=== PATIENT | female | born 1960 | race Caucasian/White ===

== ENCOUNTER 2019-05-02 20:03 | Inpatient (IN) ==
[2019-05-02] MEDS ORDERED: ALBUT/IPRATROP 3MG/0.5MG NEB 3 ML VIAL NEB STA ×2 (21:03→23:14)
[2019-05-02] MEDS ORDERED: SODIUM CHLORIDE 0.9% 1000ML 1,000 ML IV ONE (21:03)
[2019-05-02] MEDS ORDERED: MoRPHine SULFATE 4 MG/ML 1 ML CARP\\VIAL IV STA (21:06)
[2019-05-02] MEDS ORDERED: CEFEPIME 2,000 MG/20 ML VIAL IV STA (21:07)
--- NOTE | 2019-05-02 21:30 | XRay Report ---
XR chest 1V portable HISTORY: 59 years-old Female SEPSIS acute fever with sepsis COMPARISON: Chest radiograph 02/19/2019 TECHNIQUE: Portable AP view of the chest FINDINGS: Cardiac silhouette is mildly enlarged, unchanged. Stable positioning of right IJ [id number]-Insc cathet er. Unchanged moderate hemidiaphragmatic elevation. Interstitial coarsening, most pronounced in the l blu bases with left greater than right linear bibasilar densities. No pneumothorax, large pleural eff usion or overt pulmonary edema. Degenerative changes of the shoulders and spine. IMPRESSION: 1. Cardiomegaly without overt pulmonary edema. 2. Bibasilar opacities suggest probable atelectasis/scarring. Pneumonitis however would be difficult to exclude. ACT 112: Negative or not required by law. The above report was generated using voice recognition software. It may contain grammatical, syntax o r spelling errors. Electronically signed by: James Lozano M.D. 05/02/2019 9:28 PM
[2019-05-02 21:52] LABS: Appearance Urine Cloudy (Clear); Bacteria Urine Automated Negative (Negative); Bilirubin Urine Negative (Negative); Blood Urine Negative (Negative); Color Urine Yellow; Epithelial Cell Urine Auto 20-30 /lpf (0-5); Glucose Urine UA Negative (Negative); Ketones Urine Negative (Negative); Leukocyte Esterase Urine Negative (Negative); Nitrite Urine Negative (Negative); Protein Urine Negative (Negative); RBC Urine Automated 0-4 /hpf (0-4); Specific Gravity Urine 1.018 (1.000-1.030); Urobilinogen Urine Negative (Negative); pH Urine 7.5 (4.5-7.5)
[2019-05-02 22:21] LABS: Basophils # (auto) 0.04 K/uL (0-0.2); Basophils % (auto) 0.3 %; Eosinophils # (auto) 0.29 K/uL (0-0.5); Eosinophils % (auto) 2.2 %; Hematocrit (blood only) 33.6 % (37-47); Hemoglobin 10.5 g/dL (12.0-16.0); Immature Granulocytes # (auto) 0.04 K/uL (0.00-0.02); Immature Granulocytes % (auto) 0.3 %; Lymphocytes % (auto) 3.8 %; Mean Corpuscular Hemoglobin 27.9 pg (25-34); Mean Corpuscular Hgb Conc 31.3 g/dL (32-36); Mean Corpuscular Volume 89.1 fL (80-100); Mean Platelet Volume 9.5 fL (7.4-10.4); Monocytes # (auto) 1.28 K/uL (0.11-0.59); Monocytes % (auto) 9.8 %; Neutrophils # (auto) 10.87 K/uL (1.4-6.5); Neutrophils % (auto) 83.6 %; Platelet Count 374 K/uL (130-400); RDW Coefficient of Variation 14.7 % (11.5-14.5); RDW Standard Deviation 48.3 fL (36.4-46.3); Red Blood Count 3.77 M/uL (4.2-5.4); White Blood Count 13.02 K/uL (4.8-10.8)
[2019-05-02 22:31] LABS: Partial Thromboplastin Ratio 1.1; Partial Thromboplastin Time 30.6 Seconds (21.0-31.0); Prothrombin Time 10.3 Seconds (9.0-12.0)
[2019-05-02 22:35] LABS: Influenza A virus by PCR Neg for Influ A (Neg); Influenza B virus by PCR Neg for Influ B (Neg)
[2019-05-02 22:40] LABS: Alanine Aminotransferase 18 U/L (12-78); Albumin Level 2.6 gm/dl (3.4-5.0); Aspartate Aminotransferase 13 U/L (15-37); BUN Creatinine Ratio 15.1 (10-20); Blood Urea Nitrogen 13 mg/dl (7-18); Calcium 9.3 mg/dl (8.5-10.1); Carbon Dioxide 27 mmol/L (21-32); Chloride 102 mmol/L (98-107); Creatinine Clr Calc Pharmacy 83.8 ml/min; Est GFR (African American) 85.7; Glucose 145 mg/dl (70-99); Potassium 3.4 mmol/L (3.5-5.1); Sodium 136 mmol/L (136-145)
[2019-05-02 22:45] LABS: Albumin Globulin Ratio 0.6 (0.9-2); Alkaline Phosphatase 84 U/L (45-117); Bilirubin,Total 0.3 mg/dl (0.2-1); Globulin 4.2 gm/dl (2.5-4.0); Total Protein 6.8 gm/dl (6.4-8.2); Troponin I < 0.015 ng/ml (0-0.045)
[2019-05-02] MEDS ORDERED: POTASSIUM CHLORIDE 20 MEQ TABCR PO STA (23:02)
[2019-05-02] MEDS ORDERED: DOXYCYCLINE HYCLATE 100 MG in DEXTROSE 5% 100 ML IV STA (23:04)
[2019-05-02] MEDS ORDERED: SODIUM CHLORIDE 0.9% 1000ML 500 ML IV ONE (23:14)
[2019-05-02] MEDS ORDERED: LACTATED RINGER'S 1,000 ML IV ONE (23:14)
--- NOTE | 2019-05-02 23:43 | History & Physical Report ---
Date of Service May 02, 2019 Assessment & Plan (1) Severe sepsis: SIRS plus lactic acid elevation Secondary to complicated bronchitis COPD exacerbation secondary to above CAD status post stent hypertension, BP on the lower side hyperlipidemia on statin Rx past tobacco abuse rheumatoid arthritis, stable as per patient hypothyroidism, euthyroid as of today's TSH Hyperglycemia rule out DM Hypokalemia secondary to diuretic Rx chronic anemia, hemoglobin slightly lower than baseline Medical telemetry Cultures, Doxycycline IVF, follow lactic acid prednisone course Anemia work-up Basal insulin, ISS BG goal [id number] -given anticipated hyperglycemia following steroid Rx; check hemoglobin A1c Replace potassium, hold home diuretic until patient euvolemic DVT prophylaxis per Lovenox subcu Full code History of Present Illness Primary Care Provider: VIDAL Sanchez [place], [place] History obtained from patient and records. Medical history significant for CAD status post stent, hypertension, hyperlipidemia, COPD as per records, past tobacco abuse, rheumatoid arthritis, hypothyroidism, chronic anemia (baseline hemoglobin of 11). Recent confinement May 2013 under General Surgery service for perforated gastric ulcer status post surgery. Patient moved to [place] from [place] late 2013. Currently in town for the holidays to visit family. Few days history of malaise symptoms, dry cough later productive of greenish sputum associated with chills, body aches, and fever at home. Possible sick contact at home. Worsening shortness of breath without chest pain. Denies aspiration. At the ER, patient received Cefepime for sepsis. Medical History as above Surgical History : Cholecystectomy, cervical conization, ganglion/neuroma removal right foot, tonsillectomy/adenoidectomy, BTL, ex lap and closure of perforated gastric ulcer, appendectomy, a port placement Family History : Lung cancer, colon cancer, heart disease Personal/Social history : Past tobacco abuse, occasional EtOH intake, disabled Allergies Allergy/AdvReac Type Severity Reaction Status Date / Time codeine Allergy Intermediate CODEINE=NAUSEA Verified 05/02/19 23:33 VICODIN = HIVES/ITCHING, PERCOCET = VOMITING Iodinated Contrast Media Allergy Intermediate HIVES Verified 05/02/19 23:33 hydroxychloroquine Allergy Unknown Unknown Verified 05/02/19 23:33 metronidazole Allergy Unknown Hives Verified 05/02/19 23:33 hydromorphone AdvReac NAUSEA Verified 05/02/19 23:33 Home Medications Home Medications Medication Instructions Recorded Confirmed Type albuterol sulfate [ProAir HFA] 1 - 2 puff INHALATION Q4H PRN 02/19/19 05/02/19 History aspirin 81 mg PO HS 02/19/19 05/02/19 History atorvastatin 10 mg PO QPM 02/19/19 05/02/19 History clobetasol 1 applic TOPICAL BID 02/19/19 05/02/19 History cyclobenzaprine 10 mg PO TID PRN 02/19/19 05/02/19 History fluoxetine 40 mg PO DAILY 02/19/19 05/02/19 History fluticasone propion-salmeterol 1 puff INHALATION BID 02/19/19 05/02/19 History fluticasone propionate [Flonase 1 spray INTRANASAL BID 02/19/19 05/02/19 History Allergy Relief] furosemide 40 mg PO DAILY 02/19/19 05/02/19 History gabapentin 100 mg PO DAILY 02/19/19 05/02/19 History gabapentin 300 mg PO QPM 02/19/19 05/02/19 History isosorbide mononitrate 30 mg PO QAM 02/19/19 05/02/19 History ketoconazole 1 applic TOPICAL HS 02/19/19 05/02/19 History levothyroxine 100 mcg PO DAILY 02/19/19 05/02/19 History melatonin 10 mg PO HS PRN 02/19/19 05/02/19 History metoprolol succinate 50 mg PO DAILY 02/19/19 05/02/19 History montelukast 10 mg PO DAILY 02/19/19 05/02/19 History mupirocin 1 applic TOPICAL QAM 02/19/19 05/02/19 History nitroglycerin [Nitrostat] 0.4 mg SUBLINGUAL DIRECTED PRN 02/19/19 05/02/19 History [id number]-fish oil [Lutz-3 1 cap PO DAILY 02/19/19 05/02/19 History Fish Oil] pantoprazole 40 mg PO BID 02/19/19 05/02/19 History polyethylene glycol 3350 17 g PO DAILY PRN 02/19/19 05/02/19 History promethazine 12.5 mg PO TID PRN 02/19/19 05/03/19 History spironolactone 25 mg PO DAILY 10/20/19 01/01/20 History triamcinolone acetonide 1 applic TOPICAL BID 02/19/19 05/03/19 History Past Med/Surg History Surgical History H/O heart artery stent Social History Preferred Language: Cypriot Beliefs That Will Affect Care: None Current Living Situation: Family Feels Safe at Home: Yes Safety Concerns: Feels Safe At This Time Smoking Status: Former smoker Do You Dip or Chew Tobacco: No ; Second Hand Exposure: Yes ; Hx Alcohol Use: No Hx Substance Use: No Review of Systems Review of Systems: As per HPI, all 10 systems reviewed, all other ROS negative Physical Exam Physical Exam: GENERAL: Obese, minimal respiratory distress SKIN: Pallor , warm HEENT: Pale palpebral conjunctivae, no ptosis, dry buccal mucosa NECK : Supple, short neck, no tenderness CHEST : Expiratory wheezes, no tenderness HEART : Tachycardic , no obvious murmurs ABDOMEN: Some distention, nontender EXTREMITIES : Minimal LE swelling, no LE tenderness, no other conspicuous deformities noted NEUROLOGIC : Coherent, no facial asymmetry, no other gross focality Results & Data Vital Signs (Past 12 Hours) Vital Signs Temp Pulse Pulse Resp BP BP Pulse Ox 05/02/19 23:07 103 H 24 91/47 L 90 05/02/19 22:27 104 H 22 107/70 90 05/02/19 21:41 106 H 22 110/53 L 94 05/02/19 21:30 94 05/02/19 21:22 105 H 20 95 05/02/19 20:27 104 H 22 149/80 H 94 05/02/19 20:07 37.5 C 114 H 24 171/84 H 97 Laboratory Results Laboratory Results WBC 13.02 K/uL (4.8-10.8) H 05/02/19 21:14 RBC 3.77 M/uL (4.2-5.4) L 05/02/19 21:14 Hgb 10.5 g/dL (12.0-16.0) L 05/02/19 21:14 Hct 33.6 % (37-47) L 05/02/19 21:14 MCV 89.1 fL (80-100) 05/02/19 21:14 MCH 27.9 pg (25-34) 05/02/19 21:14 MCHC 31.3 g/dL (32-36) L 05/02/19 21:14 RDW Std Deviation 48.3 fL (36.4-46.3) H 05/02/19 21:14 RDW Coeff of Devendra 14.7 % (11.5-14.5) H 05/02/19 21:14 Plt Count 374 K/uL (130-400) 05/02/19 21:14 MPV 9.5 fL (7.4-10.4) 05/02/19 21:14 Immature Gran % (Auto) 0.3 % 05/02/19 21:14 Neut % (Auto) 83.6 % 05/02/19 21:14 Lymph % (Auto) 3.8 % 05/02/19 21:14 [place] % (Auto) 9.8 % 05/02/19 21:14 Eos % (Auto) 2.2 % 05/02/19 21:14 Baso % (Auto) 0.3 % 05/02/19 21:14 Immature Gran # (Auto) 0.04 K/uL (0.00-0.02) H 05/02/19 21:14 Neut # (Auto) 10.87 K/uL (1.4-6.5) H 05/02/19 21:14 Lymph # (Auto) 0.50 K/uL (1.2-3.4) L 05/02/19 21:14 [place] # (Auto) 1.28 K/uL (0.11-0.59) H 05/02/19 21:14 Eos # (Auto) 0.29 K/uL (0-0.5) 05/02/19 21:14 Baso # (Auto) 0.04 K/uL (0-0.2) 05/02/19 21:14 PT 10.3 Seconds (9.0-12.0) 05/02/19 21:14 INR 1.0 (0.9-1.1) 05/02/19 21:14 APTT 30.6 Seconds (21.0-31.0) 05/02/19 21:14 PTT Ratio 1.1 05/02/19 21:14 Sodium 136 mmol/L (136-145) 05/02/19 21:14 Potassium 3.4 mmol/L (3.5-5.1) L 05/02/19 21:14 Chloride 102 mmol/L (98-107) 05/02/19 21:14 Carbon Dioxide 27 mmol/L (21-32) 05/02/19 21:14 Anion Gap 7.0 (3-11) 05/02/19 21:14 BUN 13 mg/dl (7-18) 05/02/19 21:14 Creatinine 0.85 mg/dl (0.6-1.2) 05/02/19 21:14 Est Cr Clr Drug Dosing 83.8 ml/min 05/02/19 21:14 Est GFR ( Amer) 85.7 05/02/19 21:14 Est GFR (Non-Af Amer) 74.0 05/02/19 21:14 BUN/Creatinine Ratio 15.1 (10-20) 05/02/19 21:14 Glucose 145 mg/dl (70-99) H 05/02/19 21:14 Lactate 2.1 mmol/L (0.4-2.0) H* 05/02/19 22:01 Calcium 9.3 mg/dl (8.5-10.1) 05/02/19 21:14 Magnesium 2.0 mg/dl (1.8-2.4) 05/02/19 21:14 Total Bilirubin 0.3 mg/dl (0.2-1) 05/02/19 21:14 AST 13 U/L (15-37) L 05/02/19 21:14 ALT 18 U/L (12-78) 05/02/19 21:14 Alkaline Phosphatase 84 U/L (45-117) 05/02/19 21:14 Troponin I < 0.015 ng/ml (0-0.045) 05/02/19 21:14 Total Protein 6.8 gm/dl (6.4-8.2) 05/02/19 21:14 Albumin 2.6 gm/dl (3.4-5.0) L 05/02/19 21:14 Globulin 4.2 gm/dl (2.5-4.0) H 05/02/19 21:14 Albumin/Globulin Ratio 0.6 (0.9-2) L 05/02/19 21:14 Procalcitonin 0.05 ng/ml (0-0.5) 05/02/19 21:14 Urine Color Yellow 05/02/19 20:20 Urine Appearance Cloudy (Clear) A 05/02/19 20:20 Urine pH 7.5 (4.5-7.5) 05/02/19 20:20 Ur Specific [place] 1.018 (1.000-1.030) 05/02/19 20:20 Urine Protein Negative (Negative) 05/02/19 20:20 Urine Glucose (UA) Negative (Negative) 05/02/19 20:20 Urine Ketones Negative (Negative) 05/02/19 20:20 Urine Blood Negative (Negative) 05/02/19 20:20 Urine Nitrite Negative (Negative) 05/02/19 20:20 Urine Bilirubin Negative (Negative) 05/02/19 20:20 Urine Urobilinogen Negative (Negative) 05/02/19 20:20 Ur Leukocyte Esterase Negative (Negative) 05/02/19 20:20 Urine WBC (Auto) 1-5 /hpf (0-5) 05/02/19 20:20 Urine RBC (Auto) 0-4 /hpf (0-4) 05/02/19 20:20 U Hyaline Cast (Auto) 1-5 /lpf (0-5) 05/02/19 20:20 U Epithel Cells (Auto) 20-30 /lpf (0-5) H 05/02/19 20:20 Urine Bacteria (Auto) Negative (Negative) 05/02/19 20:20 Influenza Type A (PCR) Neg for Influ A (Neg) 05/02/19 21:22 Influenza Type B (PCR) Neg for Influ B (Neg) 05/02/19 21:22 Diagnostic Findings Chest x-ray : 1. Cardiomegaly without overt pulmonary edema. 2. Bibasilar opacities suggest probable atelectasis/scarring. Pneumonitis however would be difficult to exclude. EKG as per my interpretation : Rate 105, sinus tachycardia, LAD, LAFB, ST depression lateral leads
--- NOTE | 2019-05-03 00:12 | Emergency Department Note ---
Entered by Katarina King acting as a scribe for Darrius Parra MD History of Present Illness General Chief complaint: Fever Stated complaint: 102.4 FEVER Time Seen by Provider: 05/02/19 21:00 Source: patient History of Present Illness Provider complaint: fever Onset (ago): day(s) 2 Location: left and right Pain Consistency: + other (worsening) Quality: + other (fever) Associated symptoms: + cough (with green prodcution), + shortness of breath and + other (Positive body aches; Positive wheezing; Negative urinary symptoms); no nausea/vomiting Treatments prior to arrival: other (Extra strenght Tylenol) The patient, who is a 59 year old female with a medical history of abdominal pain, hypercalcemia, RA, and asthma, presents to the Emergency Room with complaints of a fever that was observed two days ago. The patient states that she had a fever of 102.2. The patient states that her most recent temperature today was 102.4. The patient states that she has a cough with green sputum production, body aches and diarrhea. The patient expresses that she is experiencing shortness of breath and wheezing that is exacerbated when she talks or moves and improves with rest. The patient denies vomiting or urinary symptoms. The patient states that she has been taking extra strength Tylenol. The patient reports that her last administration being around 1814. The patient states that she has a history of pneumonia with two episodes occurring July and August of this year. The patient states that she had a heart blockage and had a stent placed. The patient expresses she is on pain management for arthritis and back complications. The patient reports taking morphine for this issue and has not had her recent medication. The patient reports that she recently has been around her grandchildren who had an ear infection and a virus. The patient states that she takes a medication that compromises her immune system. The patient states that she has received her flu vaccinations. Home Medications Home Medications Medication Instructions Recorded Confirmed Type albuterol sulfate [ProAir HFA] 1 - 2 puff INHALATION Q4H PRN 02/19/19 05/02/19 History aspirin 81 mg PO HS 02/19/19 05/02/19 History atorvastatin 10 mg PO QPM 02/19/19 05/02/19 History clobetasol 1 applic TOPICAL BID 02/19/19 05/02/19 History cyclobenzaprine 10 mg PO TID PRN 02/19/19 05/02/19 History fluoxetine 40 mg PO DAILY 02/19/19 05/02/19 History fluticasone propion-salmeterol 1 puff INHALATION BID 02/19/19 05/02/19 History fluticasone propionate [Flonase 1 spray INTRANASAL BID 02/19/19 05/02/19 History Allergy Relief] furosemide 40 mg PO DAILY 02/19/19 05/02/19 History gabapentin 100 mg PO DAILY 02/19/19 05/02/19 History gabapentin 300 mg PO QPM 02/19/19 05/02/19 History isosorbide mononitrate 30 mg PO QAM 02/19/19 05/02/19 History ketoconazole 1 applic TOPICAL HS 02/19/19 05/02/19 History levothyroxine 100 mcg PO DAILY 02/19/19 05/02/19 History melatonin 10 mg PO HS PRN 02/19/19 05/02/19 History metoprolol succinate 50 mg PO DAILY 02/19/19 05/02/19 History montelukast 10 mg PO DAILY 02/19/19 05/02/19 History mupirocin 1 applic TOPICAL QAM 02/19/19 05/02/19 History nitroglycerin [Nitrostat] 0.4 mg SUBLINGUAL DIRECTED PRN 02/19/19 05/02/19 History [id number] oil [[place]-3 1 cap PO DAILY 02/19/19 05/02/19 History Fish Oil] pantoprazole 40 mg PO BID 02/19/19 05/02/19 History polyethylene glycol 3350 17 g PO DAILY PRN 02/19/19 05/02/19 History promethazine 12.5 mg PO TID PRN 02/19/19 05/03/19 History spironolactone 25 mg PO DAILY 02/19/19 05/03/19 History triamcinolone acetonide 1 applic TOPICAL BID 02/19/19 05/03/19 History Allergies Allergy/AdvReac Type Severity Reaction Status Date / Time codeine Allergy Intermediate CODEINE=NAUSEA Verified 05/02/19 23:33 VICODIN = HIVES/ITCHING, PERCOCET = VOMITING Iodinated Contrast Media Allergy Intermediate HIVES Verified 05/02/19 23:33 hydroxychloroquine Allergy Unknown Unknown Verified 05/02/19 23:33 metronidazole Allergy Unknown Hives Verified 05/02/19 23:33 hydromorphone AdvReac NAUSEA Verified 05/02/19 23:33 Past Med/Surg History Surgical History H/O heart artery stent Social History Preferred Language: Urdu Feels Safe at Home: Yes Smoking Status: Never smoker Review of Systems See HPI for pertinent positives & negatives. and A total of 10 systems reviewed and were otherwise negative Physical Exam Vital Signs Vital Signs - 24 hr 05/02/19 20:07 05/02/19 20:27 05/02/19 21:22 Temperature 37.5 C Temperature Source Oral Pulse Rate 114 H Pulse Rate [Bilateral Apical] 104 H 105 H Respiratory Rate 24 22 20 Respiratory Effort / Characteristics Non-Labored Spontaneous Blood Pressure 171/84 H Blood Pressure [Left Arm] 149/80 H Blood Pressure Mean 113 Blood Pressure Mean [Left Arm] 103 Pulse Oximetry 97 94 95 Oxygen Delivery Method Room Air Room Air Sepsis Recent Fever Within 48 Hours No Sepsis New/Unexplained Change in Mental Status No Sepsis Action Taken by Nursing No Action Required 05/02/19 21:30 05/02/19 21:41 05/02/19 22:27 Temperature Temperature Source Pulse Rate Pulse Rate [Bilateral Apical] 106 H 104 H Respiratory Rate 22 22 Respiratory Effort / Characteristics Blood Pressure Blood Pressure [Left Arm] 110/53 L 107/70 Blood Pressure Mean Blood Pressure Mean [Left Arm] 72 82 Pulse Oximetry 94 94 90 Oxygen Delivery Method Room Air Room Air Sepsis Recent Fever Within 48 Hours Sepsis New/Unexplained Change in Mental Status Sepsis Action Taken by Nursing 05/02/19 23:07 Temperature Temperature Source Pulse Rate Pulse Rate [Bilateral Apical] 103 H Respiratory Rate 24 Respiratory Effort / Characteristics Blood Pressure Blood Pressure [Left Arm] 91/47 L Blood Pressure Mean Blood Pressure Mean [Left Arm] 61 Pulse Oximetry 90 Oxygen Delivery Method Room Air Sepsis Recent Fever Within 48 Hours Sepsis New/Unexplained Change in Mental Status Sepsis Action Taken by Nursing GENERAL: Patient is in no acute distress. HEENT: No acute trauma, normocephalic atraumatic, mucous membranes moist, no nasal congestion, no scleral icterus. NECK: No stridor, no adenopathy, no meningismus, trachea is midline. LUNGS: Wheezing bilaterally, moist cough noted, no respiratory distress, breath sounds equal. HEART: Tachycardic rate and regular rhythm, no murmurs. ABDOMEN: Soft, nontender, bowel sounds positive, no hernias, no peritonitis. EXTREMITIES: No cyanosis or edema, full range of motion of all the joints without pain or difficulty, no signs for acute trauma. NEUROLOGIC: Oriented x 3, no acute motor or sensory deficits, no focal weakness. SKIN: No rash, no jaundice, no diaphoresis. Course Course 2101: Past medical records reviewed. The patient was evaluated in room C11. A complete history and physical exam was performed. 2254: I reassessed the patient and updated him on his test results so far. 2257: I reviewed the patient's case [facility] He will evaluate the patient for further management. Consultations Consultation #1: I reviewed the patient's case with [facility] He will evaluate the patient for further management. Time: 22:58 Administered Medications Lactated Ringer's (Lr) 1,000 mls @ 200 mls/hr IV .Q5H MIGUEL Stop: 06/02/19 00:14 Last Admin: 05/03/19 00:20 Dose: 200 mls/hr Documented by: [id number] Discontinued Medications Albuterol (Duoneb) 3 ml NEB NOW STA Stop: 05/02/19 21:04 Last Admin: 05/02/19 21:28 Dose: 3 ml Documented by: [id number] Albuterol (Duoneb) 3 ml NEB NOW STA Stop: 05/02/19 23:15 Last Admin: 05/02/19 23:52 Dose: 3 ml Documented by: [id number] Sodium Chloride (Nss 1000ml) 1,000 mls @ 999 mls/hr IV .Q1H1M ONE Stop: 05/02/19 22:03 Last Infusion: 05/02/19 23:16 Dose: 0 mls/hr Documented by: [id number] Admin: 05/02/19 22:02 Dose: 999 mls/hr Documented by: [id number] Cefepime HCl (Maxipime) 2,000 mg in 20 mls @ 5 mls/min IV NOW STA; Protocol Stop: 05/02/19 21:10 Last Admin: 05/02/19 22:24 Dose: 5 mls/min Documented by: [id number] Doxycycline Hyclate 100 mg/ (Dextrose) 110 mls @ 50 mls/hr IV NOW STA Stop: 05/03/19 01:15 Last Admin: 05/02/19 23:27 Dose: 50 mls/hr Documented by: [id number] Sodium Chloride (Nss 1000ml) 500 mls @ 999 mls/hr IV .Q31M ONE Stop: 05/02/19 23:44 Last Infusion: 05/02/19 23:50 Dose: 0 mls/hr Documented by: [id number] Admin: 05/02/19 23:17 Dose: 999 mls/hr Documented by: [id number] Morphine Sulfate (Morphine Sulfate) 4 mg IV NOW STA Stop: 05/02/19 21:07 Last Admin: 05/02/19 22:03 Dose: 4 mg Documented by: [id number] Potassium Chloride (Klor-Con M20) 40 meq PO NOW STA Stop: 05/02/19 23:03 Last Admin: 05/02/19 23:12 Dose: 40 meq Documented by: [id number] Critical Care Time Critical Care Time: Yes Total Critical Care Time: 46 I have personally spent 46 minutes of critical care time in the direct management of this patient. This includes bedside care, interpretation of diagnostic studies, and testing, discussion with consultants, patient, and family members, and other required patient management activities. This 46 minutes is in excess of all separately billable procedures. Medical Decision Making Differential Diagnosis Differential diagnosis includes: sepsis, pneumonia, bronchitis, influenza, flu like symptoms, illness, dehydration, urinary tract infection, electrolyte imbalance, anemia, as well as others were entertained. Medical Records Attestation: I reviewed the patient's medical records. Home Medications Current Medication List: was personally reviewed by me Laboratory Data Attestation: I reviewed the patient's lab results. Result diagrams: 05/02/19 21:14 05/02/19 21:14 Lab Results 05/02/19 05/02/19 05/02/19 Range/Units 20:20 21:14 21:14 WBC 13.02 H (4.8-10.8) K/uL RBC 3.77 L (4.2-5.4) M/uL Hgb 10.5 L (12.0-16.0) g/dL Hct 33.6 L (37-47) % MCV 89.1 (80-100) fL MCH 27.9 (25-34) pg MCHC 31.3 L (32-36) g/dL RDW Std Deviation 48.3 H (36.4-46.3) fL RDW Coeff of Devendra 14.7 H (11.5-14.5) % Plt Count 374 (130-400) K/uL MPV 9.5 (7.4-10.4) fL Immature Gran % (Auto) 0.3 % Neut % (Auto) 83.6 % Lymph % (Auto) 3.8 % Hardin % (Auto) 9.8 % Eos % (Auto) 2.2 % Baso % (Auto) 0.3 % Immature Gran # (Auto) 0.04 H (0.00-0.02) K/uL Neut # (Auto) 10.87 H (1.4-6.5) K/uL Lymph # (Auto) 0.50 L (1.2-3.4) K/uL Hardin # (Auto) 1.28 H (0.11-0.59) K/uL Eos # (Auto) 0.29 (0-0.5) K/uL Baso # (Auto) 0.04 (0-0.2) K/uL PT (9.0-12.0) Seconds INR (0.9-1.1) APTT (21.0-31.0) Seconds PTT Ratio Sodium (136-145) mmol/L Potassium (3.5-5.1) mmol/L Chloride (98-107) mmol/L Carbon Dioxide (21-32) mmol/L Anion Gap (3-11) BUN (7-18) mg/dl Creatinine (0.6-1.2) mg/dl Est Cr Clr Drug Dosing ml/min Est GFR ( Amer) Est GFR (Non-Af Amer) BUN/Creatinine Ratio (10-20) Glucose (70-99) mg/dl Lactate (0.4-2.0) mmol/L Calcium (8.5-10.1) mg/dl Magnesium (1.8-2.4) mg/dl Total Bilirubin (0.2-1) mg/dl AST (15-37) U/L ALT (12-78) U/L Alkaline Phosphatase (45-117) U/L Troponin I (0-0.045) ng/ml Total Protein (6.4-8.2) gm/dl Albumin (3.4-5.0) gm/dl Globulin (2.5-4.0) gm/dl Albumin/Globulin Ratio (0.9-2) Procalcitonin 0.05 (0-0.5) ng/ml Urine Color Yellow Urine Appearance Cloudy A (Clear) Urine pH 7.5 (4.5-7.5) Ur Specific [place] 1.018 (1.000-1.030) Urine Protein Negative (Negative) Urine Glucose (UA) Negative (Negative) Urine Ketones Negative (Negative) Urine Blood Negative (Negative) Urine Nitrite Negative (Negative) Urine Bilirubin Negative (Negative) Urine Urobilinogen Negative (Negative) Ur Leukocyte Esterase Negative (Negative) Urine WBC (Auto) 1-5 (0-5) /hpf Urine RBC (Auto) 0-4 (0-4) /hpf U Hyaline Cast (Auto) 1-5 (0-5) /lpf U Epithel Cells (Auto) 20-30 H (0-5) /lpf Urine Bacteria (Auto) Negative (Negative) Influenza Type A (PCR) (Neg) Influenza Type B (PCR) (Neg) 05/02/19 05/02/19 05/02/19 Range/Units 21:14 21:14 21:22 WBC (4.8-10.8) K/uL RBC (4.2-5.4) M/uL Hgb (12.0-16.0) g/dL Hct (37-47) % MCV (80-100) fL MCH (25-34) pg MCHC (32-36) g/dL RDW Std Deviation (36.4-46.3) fL RDW Coeff of Devendra (11.5-14.5) % Plt Count (130-400) K/uL MPV (7.4-10.4) fL Immature Gran % (Auto) % Neut % (Auto) % Lymph % (Auto) % [place] % (Auto) % Eos % (Auto) % Baso % (Auto) % Immature Gran # (Auto) (0.00-0.02) K/uL Neut # (Auto) (1.4-6.5) K/uL Lymph # (Auto) (1.2-3.4) K/uL [place] # (Auto) (0.11-0.59) K/uL Eos # (Auto) (0-0.5) K/uL Baso # (Auto) (0-0.2) K/uL PT 10.3 (9.0-12.0) Seconds INR 1.0 (0.9-1.1) APTT 30.6 (21.0-31.0) Seconds PTT Ratio 1.1 Sodium 136 (136-145) mmol/L Potassium 3.4 L (3.5-5.1) mmol/L Chloride 102 (98-107) mmol/L Carbon Dioxide 27 (21-32) mmol/L Anion Gap 7.0 (3-11) BUN 13 (7-18) mg/dl Creatinine 0.85 (0.6-1.2) mg/dl Est Cr Clr Drug Dosing 83.8 ml/min Est GFR ( Amer) 85.7 Est GFR (Non-Af Amer) 74.0 BUN/Creatinine Ratio 15.1 (10-20) Glucose 145 H (70-99) mg/dl Lactate (0.4-2.0) mmol/L Calcium 9.3 (8.5-10.1) mg/dl Magnesium 2.0 (1.8-2.4) mg/dl Total Bilirubin 0.3 (0.2-1) mg/dl AST 13 L (15-37) U/L ALT 18 (12-78) U/L Alkaline Phosphatase 84 (45-117) U/L Troponin I < 0.015 (0-0.045) ng/ml Total Protein 6.8 (6.4-8.2) gm/dl Albumin 2.6 L (3.4-5.0) gm/dl Globulin 4.2 H (2.5-4.0) gm/dl Albumin/Globulin Ratio 0.6 L (0.9-2) Procalcitonin (0-0.5) ng/ml Urine Color Urine Appearance (Clear) Urine pH (4.5-7.5) Ur Specific [place] (1.000-1.030) Urine Protein (Negative) Urine Glucose (UA) (Negative) Urine Ketones (Negative) Urine Blood (Negative) Urine Nitrite (Negative) Urine Bilirubin (Negative) Urine Urobilinogen (Negative) Ur Leukocyte Esterase (Negative) Urine WBC (Auto) (0-5) /hpf Urine RBC (Auto) (0-4) /hpf U Hyaline Cast (Auto) (0-5) /lpf U Epithel Cells (Auto) (0-5) /lpf Urine Bacteria (Auto) (Negative) Influenza Type A (PCR) Neg for Influ A (Neg) Influenza Type B (PCR) Neg for Influ B (Neg) 05/02/19 Range/Units 22:01 WBC (4.8-10.8) K/uL RBC (4.2-5.4) M/uL Hgb (12.0-16.0) g/dL Hct (37-47) % MCV (80-100) fL MCH (25-34) pg MCHC (32-36) g/dL RDW Std Deviation (36.4-46.3) fL RDW Coeff of Devendra (11.5-14.5) % Plt Count (130-400) K/uL MPV (7.4-10.4) fL Immature Gran % (Auto) % Neut % (Auto) % Lymph % (Auto) % [place] % (Auto) % Eos % (Auto) % Baso % (Auto) % Immature Gran # (Auto) (0.00-0.02) K/uL Neut # (Auto) (1.4-6.5) K/uL Lymph # (Auto) (1.2-3.4) K/uL [place] # (Auto) (0.11-0.59) K/uL Eos # (Auto) (0-0.5) K/uL Baso # (Auto) (0-0.2) K/uL PT (9.0-12.0) Seconds INR (0.9-1.1) APTT (21.0-31.0) Seconds PTT Ratio Sodium (136-145) mmol/L Potassium (3.5-5.1) mmol/L Chloride (98-107) mmol/L Carbon Dioxide (21-32) mmol/L Anion Gap (3-11) BUN (7-18) mg/dl Creatinine (0.6-1.2) mg/dl Est Cr Clr Drug Dosing ml/min Est GFR ( Amer) Est GFR (Non-Af Amer) BUN/Creatinine Ratio (10-20) Glucose (70-99) mg/dl Lactate 2.1 H* (0.4-2.0) mmol/L Calcium (8.5-10.1) mg/dl Magnesium (1.8-2.4) mg/dl Total Bilirubin (0.2-1) mg/dl AST (15-37) U/L ALT (12-78) U/L Alkaline Phosphatase (45-117) U/L Troponin I (0-0.045) ng/ml Total Protein (6.4-8.2) gm/dl Albumin (3.4-5.0) gm/dl Globulin (2.5-4.0) gm/dl Albumin/Globulin Ratio (0.9-2) Procalcitonin (0-0.5) ng/ml Urine Color Urine Appearance (Clear) Urine pH (4.5-7.5) Ur Specific [place] (1.000-1.030) Urine Protein (Negative) Urine Glucose (UA) (Negative) Urine Ketones (Negative) Urine Blood (Negative) Urine Nitrite (Negative) Urine Bilirubin (Negative) Urine Urobilinogen (Negative) Ur Leukocyte Esterase (Negative) Urine WBC (Auto) (0-5) /hpf Urine RBC (Auto) (0-4) /hpf U Hyaline Cast (Auto) (0-5) /lpf U Epithel Cells (Auto) (0-5) /lpf Urine Bacteria (Auto) (Negative) Influenza Type A (PCR) (Neg) Influenza Type B (PCR) (Neg) Imaging Data Radiologist's Impression: Radiology results as stated below per my review and the radiologist's interpretation: XR chest 1V portable HISTORY: 59 years-old Female SEPSIS acute fever with sepsis COMPARISON: Chest radiograph 02/19/2019 TECHNIQUE: Portable AP view of the chest FINDINGS: Cardiac silhouette is mildly enlarged, unchanged. Stable positioning of right IJ Pnight-p-Hvkn catheter. Unchanged moderate hemidiaphragmatic elevation. Interstitial coarsening, most pronounced in the lung bases with left greater than right linear bibasilar densities. No pneumothorax, large pleural effusion or overt pulmonary edema. Degenerative changes of the shoulders and spine. IMPRESSION: 1. Cardiomegaly without overt pulmonary edema. 2. Bibasilar opacities suggest probable atelectasis/scarring. Pneumonitis however would be difficult to exclude. ACT 112: Negative or not required by law. The above report was generated using voice recognition software. It may contain grammatical, syntax or spelling errors. Electronically signed by: James Lozano M.D. 05/02/2019 9:28 PM ECG Data Attestation: I personally reviewed and interpreted this ECG as follows: Indication: + SOB/dyspnea Rate (beats per minute): 106 Rhythm: + sinus tachycardia ECG ST segments: + Nonspecific ST abnormalities (Nonspecific ST change); no ST elevation ECG Findings: + Other (QTC 414); no PVCs Blood Pressure Blood Pressure Findings: Normal blood pressure MDM Narrative There is a mild leukocytosis, this could be consistent with infection. The patient does have a slight anemia with a hemoglobin of 10.5. Platelet count is normal. No coagulopathy. There is no significant electrolyte abnormality or kidney failure. Lactic acid level is slightly elevated, this would be consistent with infection. No worrisome liver enzyme elevation. Urinalysis does not show infection. Influenza testing was negative. Chest film shows a potential bilateral lower lung pneumonia. EKG shows a sinus rhythm, no acute ischemia. Cardiac enzyme testing x1 is not consistent with acute cardiac injury. On exam, the patient was borderline hypoxic, she was wheezing. She appeared somewhat dehydrated. The patient received albuterol via MDI, a second DuoNeb was then given. She received IV cefepime as antibiotic coverage. She was given IV saline, 1.5 L. She received a dose of IV morphine for pain control. The patient is immunocompromised. She appears to have a lower lung pneumonia. She is wheezing, borderline hypoxic and has a white count as well as lactic acidosis. I do think she may have early sepsis. Hospitalization is warranted. I spoke to the patient and case management. The on-call hospitalist was consulted. Impression & Plan Sepsis, PNA (pneumonia), Wheezing, Tachycardia, Immunosuppression Discharge Plan Visit Data *Final* Discharge Date/Time: 05/03/19 01:00 Chief Complaint: Fever Stated Complaint: 102.4 FEVER ED Provider: Darrius Parra Discharge Problem: Sepsis, PNA (pneumonia), Wheezing, Tachycardia, Immunosuppression Patient Disposition: Admitted As Inpatient Discharge Problem: Sepsis Qualifiers: Sepsis type: sepsis due to unspecified organism Sepsis acute organ dysfunction status: with acute organ dysfunction Severe sepsis acute organ dysfunction type: acute respiratory failure Acute respiratory failure type: with hypoxia Severe sepsis shock status: without septic shock Qualified Code(s): A41.9 - Sepsis, unspecified organism PNA (pneumonia) Qualifiers: Pneumonia type: due to unspecified organism Laterality: bilateral Lung location: lower lobe of lung Qualified Code(s): J18.9 - Pneumonia, unspecified organism The scribe's documentation has been prepared under my direction and personally reviewed by me in its entirety. I confirm that the note above accurately reflects all work, treatment, procedures, and medical decision making performed by me.
[2019-05-03] MEDS ORDERED: LACTATED RINGER'S 1,000 ML IV SCH (00:15)
[2019-05-03] MEDS ORDERED: ACETAMINOPHEN 325 MG TAB PO PRN (01:12)
[2019-05-03] MEDS ORDERED: INSULIN GLARGINE SOLOSTAR 100 UNITS/ML 3 ML PEN SC STA (01:12)
[2019-05-03] MEDS ORDERED: TRAMADOL HCL 50 MG TABLET PO PRN (01:12)
[2019-05-03] MEDS ORDERED: POLYETHYLENE (MIRALAX) 17 GM PACK PO PRN (01:12)
[2019-05-03] MEDS ORDERED: PROMETHAZINE HCL 12.5 MG in SODIUM CHLORIDE 0.9% 50 ML IV PRN (01:12)
[2019-05-03] MEDS ORDERED: XOPENEX/ATROVENT 1.25mg/0.5MG NEB COMBO NEB SCH (01:12)
[2019-05-03] MEDS ORDERED: MAGNESIUM SULFATE / D5W 1 GM/100 ML BAG IV ONE (02:00)
[2019-05-03] MEDS: IPRATROPIUM BROMIDE NEB SOLN 0.02% 2.5 ML VIAL INH SCH ×4 (02:19→19:56)
[2019-05-03] MEDS: LEVALBUTEROL 1.25MG/0.5ML NEB INH SCH ×4 (02:19→19:56)
[2019-05-03] MEDS ORDERED: LACTATED RINGER'S 1,000 ML IV ONE (02:32)
[2019-05-03] MEDS ORDERED: CEFEPIME CONSULT ACTIVE PRN (03:32)
[2019-05-03] MEDS ORDERED: Nursing to Pharmacy Communication ONE (03:58)
[2019-05-03] MEDS ORDERED: CARBOHYDRATES FOR HYPOGLYCEMIA PO PRN (05:06)
[2019-05-03] MEDS ORDERED: GLUCAGON FOR INJ 1 MG VIAL SQ PRN (05:06)
[2019-05-03] MEDS ORDERED: GLUCOSE 40% GEL 15 GM TUBE PO PRN (05:06)
[2019-05-03] MEDS ORDERED: GLUCOSE 10 TABS/TUBE PO PRN (05:06)
[2019-05-03] MEDS ORDERED: DEXTROSE 50% 50 ML SYRINGE IV PRN (05:06)
[2019-05-03] MEDS ORDERED: CEFEPIME 2,000 MG in SYRINGE 7.5 ML IV SCH (06:00)
[2019-05-03 06:03] LABS: Hematocrit (blood only) 31.5 % (37-47); Mean Corpuscular Hemoglobin 28.1 pg (25-34); Mean Corpuscular Hgb Conc 31.7 g/dL (32-36); Mean Corpuscular Volume 88.5 fL (80-100); Mean Platelet Volume 9.7 fL (7.4-10.4); Platelet Count 322 K/uL (130-400); RDW Standard Deviation 48.5 fL (36.4-46.3); Red Blood Count 3.56 M/uL (4.2-5.4); Reticulocyte % 1.6 % (0.5-2.0); Reticulocytes # 0.06 10^6/uL (0.02-0.10); White Blood Count 13.97 K/uL (4.8-10.8)
[2019-05-03] MEDS: LEVOTHYROXINE SODIUM 100 MCG TABLET PO SCH (06:10)
[2019-05-03 06:32] LABS: Basophils # (auto) 0.03 K/uL (0-0.2); Basophils % (auto) 0.2 %; Eosinophils # (auto) 0.18 K/uL (0-0.5); Eosinophils % (auto) 1.3 %; Immature Granulocytes # (auto) 0.04 K/uL (0.00-0.02); Immature Granulocytes % (auto) 0.3 %; Monocytes # (auto) 1.07 K/uL (0.11-0.59); Monocytes % (auto) 7.7 %; Neutrophils # (auto) 11.95 K/uL (1.4-6.5); Neutrophils % (auto) 85.5 %
[2019-05-03 06:56] LABS: Calcium 8.5 mg/dl (8.5-10.1); Creatinine Clr Calc Pharmacy 104.4 ml/min; Est GFR (African American) 108.9; Ferritin 181.9 ng/ml (8-388); Potassium 3.9 mmol/L (3.5-5.1)
[2019-05-03] MEDS: INSULIN GLARGINE SOLOSTAR 100 UNITS/ML 3 ML PEN SQ SCH (08:39)
[2019-05-03] MEDS: INSULIN ASPART 100 UNITS/ML 3 ML PEN SC SCH ×4 (08:39→21:20)
[2019-05-03] MEDS: FLUOXETINE HCL 20 MG CAP PO SCH (08:40)
[2019-05-03] MEDS: predniSONE 20 MG TAB PO SCH (08:40)
[2019-05-03] MEDS: PANTOprazole 40 MG TAB PO SCH ×2 (08:40→20:11)
[2019-05-03] MEDS: MONTELUKAST SODIUM 10 MG TABLET PO SCH (08:40)
[2019-05-03] MEDS: GABAPENTIN 100 MG CAP PO SCH (08:40)
[2019-05-03] MEDS: FLUTICASONE PROPIONATE NA SPR 16 GM BTL SCH ×2 (08:40→20:11)
[2019-05-03 08:54] LABS: Folate (Folic Acid) 22.74 ng/ml (>5.38)
[2019-05-03] MEDS ORDERED: METOPROLOL SUCC 25MG EXT REL TAB PO SCH (09:00)
[2019-05-03] MEDS ORDERED: ISOSORBIDE MONO EXTENDED REL 30 MG TABCR PO SCH (09:00)
[2019-05-03] MEDS: DOXYCYCLINE HYCLATE 100 MG CAP PO SCH ×2 (09:05→20:11)
--- NOTE | 2019-05-03 09:17 | Hospitalist Progress Note ---
Date of Service Late entry date of service noted below May 03, 2019 Assessment & Plan (1) Severe sepsis: COPD exacerbation secondary to possible Pneumonia, Bronchitis -- lactic acid normalized -- CXR: 1. Cardiomegaly without overt pulmonary edema. 2. Bibasilar opacities suggest probable atelectasis/scarring. Pneumonitis however would be difficult to exclude. -- ff up cultures -- Doxy Nebs Prednisone -- wean off Oxygen CAD status post stent --- no cardiac symptoms Hypertension, BP on the lower side -- hold Amlodipine, Imdur Hyperlipidemia on statin Rx Rheumatoid arthritis, stable as per patient Hypothyroidism, euthyroid based on TSH Hyperglycemia rule out DM -- A1c pending Hypokalemia secondary to diuretic Rx -- resolved chronic anemia, hemoglobin slightly lower than baseline -- 11--> 10 no signs of overt bleeding monitor -- Fe 17 will need Fe supplement further work up as outpatient DVT prophylaxis per Lovenox subcu Full code anticipate d/c home when medically stable Subjective ff up for COPD exacerbation seen resting in bed, comfortable not in distress, on room air states breathing is slightly better than yesterday still has intermittent cough no fever/chills no chest pain denies other symptoms Review of Systems Review of Systems: All systems reviewed & are unremarkable except as noted in HPI & below Physical Exam Physical Exam: General- oriented x 3, not in distress, speaks in sentences with no effort or accessory muscle use Head- atraumatic Eyes- PERRL, EOMI, anicteric ENT- oropharynx clear Neck- supple, no JVD, no adenopathy, no thyromegaly; carotids +2/2, no bruits appreciated Lungs- faint rhonchi/wheeze at the bases, good air entry BL Heart- normal rate, regular rhythm; no murmur, no gallop, no rub appreciated Abdomen- normal bowel sounds, nondistended, soft, nontender, no masses or hepatosplenomegaly Extremities- no pretibial edema, no calf tenderness; peripheral pulses intact Neuro- alert, oriented x 3; CN 2-12 grossly intact; motor 5/5 bilaterally;sensation 100% on all extremities; no other gross focal neurologic deficits Skin- warm & dry Results & Data Vital Signs (Past 12 Hours) Vital Signs Temp Pulse Pulse Pulse Resp BP Pulse Ox 05/03/19 07:24 37.5 C 96 H 20 110/68 91 05/03/19 07:23 95 H 18 92 05/03/19 02:20 95 H 16 95 05/03/19 01:17 36.8 C 100 H 103 H 22 133/84 94 05/03/19 00:31 36.8 C 103 H 24 100/53 L 92 05/02/19 23:52 96 H 18 95 05/02/19 23:07 103 H 24 91/47 L 90 05/02/19 22:27 104 H 22 107/70 90 05/02/19 21:41 106 H 22 110/53 L 94 05/02/19 21:30 94 05/02/19 21:22 105 H 20 95 Pulse Ox 05/03/19 07:24 05/03/19 07:23 05/03/19 02:20 05/03/19 01:17 94 05/03/19 00:31 05/02/19 23:52 05/02/19 23:07 05/02/19 22:27 05/02/19 21:41 05/02/19 21:30 05/02/19 21:22 Laboratory Results Laboratory Results - last 24 hr 05/02/19 05/02/19 05/02/19 20:20 21:14 21:14 WBC 13.02 H RBC 3.77 L Hgb 10.5 L Hct 33.6 L MCV 89.1 MCH 27.9 MCHC 31.3 L RDW Std Deviation 48.3 H RDW Coeff of Devendra 14.7 H Plt Count 374 MPV 9.5 Immature Gran % (Auto) 0.3 Neut % (Auto) 83.6 Lymph % (Auto) 3.8 Cross % (Auto) 9.8 Eos % (Auto) 2.2 Baso % (Auto) 0.3 Reticulocyte % (Auto) Immature Gran # (Auto) 0.04 H Neut # (Auto) 10.87 H Lymph # (Auto) 0.50 L Cross # (Auto) 1.28 H Eos # (Auto) 0.29 Baso # (Auto) 0.04 Reticulocyte # PT INR APTT PTT Ratio Sodium Potassium Chloride Carbon Dioxide Anion Gap BUN Creatinine Est Cr Clr Drug Dosing Est GFR ( Amer) Est GFR (Non-Af Amer) BUN/Creatinine Ratio Glucose POC Glucose Estimat Average Glucose Hemoglobin A1c Lactate Calcium Magnesium Iron TIBC Transferrin Ferritin Total Bilirubin AST ALT Alkaline Phosphatase Troponin I Total Protein Albumin Globulin Albumin/Globulin Ratio Vitamin B12 Folate Procalcitonin 0.05 TSH Urine Color Yellow Urine Appearance Cloudy A Urine pH 7.5 Ur Specific [place] 1.018 Urine Protein Negative Urine Glucose (UA) Negative Urine Ketones Negative Urine Blood Negative Urine Nitrite Negative Urine Bilirubin Negative Urine Urobilinogen Negative Ur Leukocyte Esterase Negative Urine WBC (Auto) 1-5 Urine RBC (Auto) 0-4 U Hyaline Cast (Auto) 1-5 U Epithel Cells (Auto) 20-30 H Urine Bacteria (Auto) Negative Influenza Type A (PCR) Influenza Type B (PCR) Blood Type Antibody Screen 05/02/19 05/02/19 05/02/19 21:14 21:14 21:22 WBC RBC Hgb Hct MCV MCH MCHC RDW Std Deviation RDW Coeff of Devendra Plt Count MPV Immature Gran % (Auto) Neut % (Auto) Lymph % (Auto) Cross % (Auto) Eos % (Auto) Baso % (Auto) Reticulocyte % (Auto) Immature Gran # (Auto) Neut # (Auto) Lymph # (Auto) Cross # (Auto) Eos # (Auto) Baso # (Auto) Reticulocyte # PT 10.3 INR 1.0 APTT 30.6 PTT Ratio 1.1 Sodium 136 Potassium 3.4 L Chloride 102 Carbon Dioxide 27 Anion Gap 7.0 BUN 13 Creatinine 0.85 Est Cr Clr Drug Dosing 83.8 Est GFR ( Amer) 85.7 Est GFR (Non-Af Amer) 74.0 BUN/Creatinine Ratio 15.1 Glucose 145 H POC Glucose Estimat Average Glucose Hemoglobin A1c Lactate Calcium 9.3 Magnesium 2.0 Iron TIBC Transferrin Ferritin Total Bilirubin 0.3 AST 13 L ALT 18 Alkaline Phosphatase 84 Troponin I < 0.015 Total Protein 6.8 Albumin 2.6 L Globulin 4.2 H Albumin/Globulin Ratio 0.6 L Vitamin B12 Folate Procalcitonin TSH Urine Color Urine Appearance Urine pH Ur Specific [place] Urine Protein Urine Glucose (UA) Urine Ketones Urine Blood Urine Nitrite Urine Bilirubin Urine Urobilinogen Ur Leukocyte Esterase Urine WBC (Auto) Urine RBC (Auto) U Hyaline Cast (Auto) U Epithel Cells (Auto) Urine Bacteria (Auto) Influenza Type A (PCR) Neg for Influ A Influenza Type B (PCR) Neg for Influ B Blood Type Antibody Screen 05/02/19 05/03/19 05/03/19 22:01 01:27 01:27 WBC RBC Hgb Hct MCV MCH MCHC RDW Std Deviation RDW Coeff of Devendra Plt Count MPV Immature Gran % (Auto) Neut % (Auto) Lymph % (Auto) Cross % (Auto) Eos % (Auto) Baso % (Auto) Reticulocyte % (Auto) Immature Gran # (Auto) Neut # (Auto) Lymph # (Auto) Cross # (Auto) Eos # (Auto) Baso # (Auto) Reticulocyte # PT INR APTT PTT Ratio Sodium Potassium Chloride Carbon Dioxide Anion Gap BUN Creatinine Est Cr Clr Drug Dosing Est GFR ( Amer) Est GFR (Non-Af Amer) BUN/Creatinine Ratio Glucose POC Glucose Estimat Average Glucose Pending Hemoglobin A1c Pending Lactate 2.1 H* 1.1 Calcium Magnesium Iron TIBC Transferrin Ferritin Total Bilirubin AST ALT Alkaline Phosphatase Troponin I Total Protein Albumin Globulin Albumin/Globulin Ratio Vitamin B12 Folate Procalcitonin TSH Urine Color Urine Appearance Urine pH Ur Specific [place] Urine Protein Urine Glucose (UA) Urine Ketones Urine Blood Urine Nitrite Urine Bilirubin Urine Urobilinogen Ur Leukocyte Esterase Urine WBC (Auto) Urine RBC (Auto) U Hyaline Cast (Auto) U Epithel Cells (Auto) Urine Bacteria (Auto) Influenza Type A (PCR) Influenza Type B (PCR) Blood Type Antibody Screen 05/03/19 05/03/19 05/03/19 01:27 02:53 05:15 WBC 13.97 H RBC 3.56 L Hgb 10.0 L Hct 31.5 L MCV 88.5 MCH 28.1 MCHC 31.7 L RDW Std Deviation 48.5 H RDW Coeff of Devendra 15.0 H Plt Count 322 MPV 9.7 Immature Gran % (Auto) 0.3 Neut % (Auto) 85.5 Lymph % (Auto) 5.0 Cross % (Auto) 7.7 Eos % (Auto) 1.3 Baso % (Auto) 0.2 Reticulocyte % (Auto) 1.6 Immature Gran # (Auto) 0.04 H Neut # (Auto) 11.95 H Lymph # (Auto) 0.70 L Cross # (Auto) 1.07 H Eos # (Auto) 0.18 Baso # (Auto) 0.03 Reticulocyte # 0.06 PT INR APTT PTT Ratio Sodium Potassium Chloride Carbon Dioxide Anion Gap BUN Creatinine Est Cr Clr Drug Dosing Est GFR ( Amer) Est GFR (Non-Af Amer) BUN/Creatinine Ratio Glucose POC Glucose 93 Estimat Average Glucose Hemoglobin A1c Lactate Calcium Magnesium Iron TIBC Transferrin Ferritin Total Bilirubin AST ALT Alkaline Phosphatase Troponin I Total Protein Albumin Globulin Albumin/Globulin Ratio Vitamin B12 Folate Procalcitonin TSH 2.550 Urine Color Urine Appearance Urine pH Ur Specific [place] Urine Protein Urine Glucose (UA) Urine Ketones Urine Blood Urine Nitrite Urine Bilirubin Urine Urobilinogen Ur Leukocyte Esterase Urine WBC (Auto) Urine RBC (Auto) U Hyaline Cast (Auto) U Epithel Cells (Auto) Urine Bacteria (Auto) Influenza Type A (PCR) Influenza Type B (PCR) Blood Type Antibody Screen 05/03/19 05/03/19 05/03/19 05:15 05:15 05:15 WBC RBC Hgb Hct MCV MCH MCHC RDW Std Deviation RDW Coeff of Devendra Plt Count MPV Immature Gran % (Auto) Neut % (Auto) Lymph % (Auto) Cross % (Auto) Eos % (Auto) Baso % (Auto) Reticulocyte % (Auto) Immature Gran # (Auto) Neut # (Auto) Lymph # (Auto) Cross # (Auto) Eos # (Auto) Baso # (Auto) Reticulocyte # PT INR APTT PTT Ratio Sodium 136 Potassium 3.9 Chloride 104 Carbon Dioxide 26 Anion Gap 6.0 BUN 8 D Creatinine 0.69 Est Cr Clr Drug Dosing 104.4 Est GFR ( Amer) 108.9 Est GFR (Non-Af Amer) 94.0 BUN/Creatinine Ratio 11.0 Glucose 124 H POC Glucose Estimat Average Glucose Hemoglobin A1c Lactate Calcium 8.5 Magnesium Iron 17 L TIBC 269 Transferrin 212 Ferritin 181.9 Total Bilirubin AST ALT Alkaline Phosphatase Troponin I Total Protein Albumin Globulin Albumin/Globulin Ratio Vitamin B12 1323 H Folate 22.74 Procalcitonin TSH Urine Color Urine Appearance Urine pH Ur Specific [place] Urine Protein Urine Glucose (UA) Urine Ketones Urine Blood Urine Nitrite Urine Bilirubin Urine Urobilinogen Ur Leukocyte Esterase Urine WBC (Auto) Urine RBC (Auto) U Hyaline Cast (Auto) U Epithel Cells (Auto) Urine Bacteria (Auto) Influenza Type A (PCR) Influenza Type B (PCR) Blood Type O Positive Antibody Screen NEGATIVE 05/03/19 05/03/19 07:52 11:15 WBC RBC Hgb Hct MCV MCH MCHC RDW Std Deviation RDW Coeff of Devendra Plt Count MPV Immature Gran % (Auto) Neut % (Auto) Lymph % (Auto) Cross % (Auto) Eos % (Auto) Baso % (Auto) Reticulocyte % (Auto) Immature Gran # (Auto) Neut # (Auto) Lymph # (Auto) Cross # (Auto) Eos # (Auto) Baso # (Auto) Reticulocyte # PT INR APTT PTT Ratio Sodium Potassium Chloride Carbon Dioxide Anion Gap BUN Creatinine Est Cr Clr Drug Dosing Est GFR ( Amer) Est GFR (Non-Af Amer) BUN/Creatinine Ratio Glucose POC Glucose 131 H 170 H Estimat Average Glucose Hemoglobin A1c Lactate Calcium Magnesium Iron TIBC Transferrin Ferritin Total Bilirubin AST ALT Alkaline Phosphatase Troponin I Total Protein Albumin Globulin Albumin/Globulin Ratio Vitamin B12 Folate Procalcitonin TSH Urine Color Urine Appearance Urine pH Ur Specific [place] Urine Protein Urine Glucose (UA) Urine Ketones Urine Blood Urine Nitrite Urine Bilirubin Urine Urobilinogen Ur Leukocyte Esterase Urine WBC (Auto) Urine RBC (Auto) U Hyaline Cast (Auto) U Epithel Cells (Auto) Urine Bacteria (Auto) Influenza Type A (PCR) Influenza Type B (PCR) Blood Type Antibody Screen
[2019-05-03] MEDS: ASPIRIN 81 MG ECTAB PO SCH (20:10)
[2019-05-03] MEDS: GABAPENTIN 300 MG CAP PO SCH (20:10)
[2019-05-03] MEDS: ATORVASTATIN 10 MG TAB PO SCH (20:10)
[2019-05-03] MEDS: MoRPHine SULFATE CR 15 MG TABCR PO SCH (20:32)
[2019-05-04] MEDS: IPRATROPIUM BROMIDE NEB SOLN 0.02% 2.5 ML VIAL INH SCH ×4 (01:18→19:31)
[2019-05-04] MEDS: LEVALBUTEROL 1.25MG/0.5ML NEB INH SCH ×4 (01:18→19:31)
[2019-05-04] MEDS: LEVOTHYROXINE SODIUM 100 MCG TABLET PO SCH (05:59)
[2019-05-04 06:02] LABS: Estimated Average Glucose 151 mg/dl; Hemoglobin A1C 6.9 % (4.5-5.6)
[2019-05-04] MEDS: FLUTICASONE PROPIONATE NA SPR 16 GM BTL SCH ×2 (07:42→20:27)
[2019-05-04] MEDS: PANTOprazole 40 MG TAB PO SCH ×2 (07:42→20:27)
[2019-05-04] MEDS: METOPROLOL SUCC 50MG EXT REL TAB PO SCH (07:42)
[2019-05-04] MEDS: DOXYCYCLINE HYCLATE 100 MG CAP PO SCH ×2 (07:42→20:27)
[2019-05-04] MEDS: MONTELUKAST SODIUM 10 MG TABLET PO SCH (07:42)
[2019-05-04] MEDS: predniSONE 20 MG TAB PO SCH (07:43)
[2019-05-04] MEDS: FLUOXETINE HCL 20 MG CAP PO SCH (07:43)
[2019-05-04] MEDS: GABAPENTIN 100 MG CAP PO SCH (07:43)
[2019-05-04] MEDS: MoRPHine SULFATE CR 15 MG TABCR PO SCH ×2 (07:44→20:26)
[2019-05-04] MEDS: INSULIN ASPART 100 UNITS/ML 3 ML PEN SC SCH ×4 (08:41→20:28)
[2019-05-04] MEDS: INSULIN GLARGINE SOLOSTAR 100 UNITS/ML 3 ML PEN SQ SCH (08:42)
[2019-05-04] MEDS: FLUTICASONE/SALMETEROL 100/50 (ADVAIR) 14 PUFF/1 INHALER INH SCH ×2 (08:45→20:27)
[2019-05-04] MEDS ORDERED: PHARMACY GLYCEMIC MGMT CONSULT PRN (16:49)
--- NOTE | 2019-05-04 17:05 | Pharmacy Report ---
Glycemic Control Consultation - Date of Service May 04, 2019 - Scope Scope: Glycemic Pharmacist consulted by Dr Casas on 05/04/2019 for glycemic control and to write orders per [facility] inpatient glycemic control protocol - Objective Weight: 110.8 kg Accuchecks BSG (last 24hrs): 05/03/19 05/03/19 05/04/19 16:24 20:14 07:33 POC Glucose 175 H 152 H 107 H 05/04/19 05/04/19 11:47 16:19 POC Glucose 172 H 197 H HbA1c: Hemoglobin A1c 6.9 % (4.5-5.6) H 05/03/19 01:27 - Recent Pertinent Medications Outpatient Anti-diabetic Regimen: * ---- The patient is currently receiving: * Basal insulin: Lantus 5 units every 24 hours * Correctional Insulin: Novolog Correction per scale ACHS Goal Range: Low 140 mg/dL - High 180 mg/dL Correction Factor: 25 mg/dL/unit * Prandial insulin: Per carb ratio of 1 unit per 15 grams CHO consumed Risk Factors for Insulin Resistance: * Steroids: prednisone 40 mg Qday changed to Solu-Medrol 40 mg IV q8 hours * Diet: T2DM - Assessment & Plan Assessment & Plan: ASSESSMENT: * Ms Taylor is a 59 y/o F with a new diagnosis of T2DM. She presents with a COPD exacerbation. Blood sugars yesterday were [phone] mg/dL. Fasting this morning was 107 mg/dL. She received 11 units of insulin yesterday (5 units basal and 6 units bolus) with prednisone 40 mg daily. Steroids now increased. * With fasting of 107 mg/dL from just 5 units of Lantus, extremely hesitant to add basal insulin. Will tighten Novolog significantly to weight-based stress of 2 and add overnight checks. Utilize this information to adjust patient accordingly. May benefit from NPH instead of Lantus as once steroids are de- escalate patient will require very little basal. PLAN FOR INPATIENT GLYCEMIC CONTROL: * Bolus insulin * NovoLog per scale ACHS or Q6hrs while NPO * Goal Range: Low 110 mg/dL - High 140 mg/dL * Correction Factor: 20 mg/dL/unit * Nutritional / Prandial insulin per carb ratio of 1 unit per 7 grams CHO consumed * Please note that the plan above was derived based on current level of insulin resistance and hospital stress. These recommendations are appropriate for inpatient admission only. Plan of care upon discharge will need to be reassessed to avoid potential outpatient hypo/hyperglycemia. Thank you.
[2019-05-04] MEDS: methylPREDNISolone 40 MG in SYRINGE 0 ML IV SCH (17:10)
--- NOTE | 2019-05-04 18:31 | CT Scan Report ---
CT chest wo con CT DOSE: 662.99 mGycm HISTORY: Dyspnea possible pneumonia, r/o effusion TECHNIQUE: Multiaxial CT images of the chest were performed without contrast. A dose lowering techni que was utilized adhering to the principles of ALARA. COMPARISON: None. FINDINGS: Several scattered groundglass nodules throughout both hemithoraces. The left pulmonary apex demonstrates a small groundglass nodule image 15. Several 2 mm groundglass nodules are identified wi thin the lingula. There are small groundglass nodules anterior to the right major fissure image 27 ri ght lung base as well as anterior aspect left upper lobe image 27. There are findings of bibasilar dependent atelectasis. There is no significant pleural effusion. Mediastinal regions show evidence for a central catheter. There are several small mediastinal nodes m easuring 1 cm or less. IMPRESSION: 1. Small scattered groundglass densities throughout both hemithoraces as discussed. 2. All measure less than 1.5 cm in maximum dimension. 3. Diagnostic considerations must include multifocal punctate infiltrates, versus a variety of etiolo gies considered less likely. 4. A 3 month follow-up is suggested. 5. No evidence for significant pleural effusion. ACT 112: Negative or not required by law. The above report was generated using voice recognition software. It may contain grammatical, syntax or spelling errors. Electronically signed by: Ankit Nicholas M.D. 05/04/2019 6:30 PM
--- NOTE | 2019-05-04 19:19 | Hospitalist Progress Note ---
Date of Service May 04, 2019 Assessment & Plan (1) Severe sepsis: COPD exacerbation secondary to possible Pneumonia, Bronchitis -- lactic acid normalized -- CXR: 1. Cardiomegaly without overt pulmonary edema. 2. Bibasilar opacities suggest probable atelectasis/scarring. Pneumonitis however would be difficult to exclude. --Blood cultures: Pending Sputum culture: Moderate normal dali, pending --Weaned off oxygen but reports she feels about the same as yesterday, still has some scattered wheezing As well as dyspnea and exertion Reports having recurrent cough since January CT chest ordered --Start Solu-Medrol 40 mg IV every 8 Continue doxycycline Continue nebs Possible rheumatoid arthritis flare Patient currently takes leflunomide, discontinued last Wednesday due to fever and cough Patient also received Actemra but was discontinued last January for respiratory symptoms Reports increasing right shoulder and right knee pain and swelling Will obtain ultrasound of the right knee to rule out effusion We will order a rheumatology consultation CAD status post stent --- no cardiac symptoms Hypertension, BP on the lower side -- hold Amlodipine, Imdur Hyperlipidemia on statin Rx Hypothyroidism, euthyroid based on TSH Hyperglycemia rule out DM -- A1c 6.9 --Diabetic diet, will need close outpatient follow-up Hypokalemia secondary to diuretic Rx -- resolved chronic anemia, hemoglobin slightly lower than baseline -- 11--> 10 no signs of overt bleeding monitor -- Fe 17 will need Fe supplement further work up as outpatient DVT prophylaxis per Lovenox subcu Full code anticipate d/c home when medically stable Subjective Follow-up for possible bronchitis/pneumonia, asthma exacerbation Seen resting in bed, comfortable, not in distress States breathing is about the same as yesterday, has dyspnea on exertion Still has intermittent cough, productive of white sputum Denies chest pain Patient reports progressive right knee swelling and pain as well as shoulder pain-which she is indicated that her rheumatoid arthritis is flaring up No other symptoms Review of Systems Review of Systems: All systems reviewed & are unremarkable except as noted in HPI & below Physical Exam Physical Exam: General- oriented x 3, not in distress, speaks in sentences with no effort or accessory muscle use Head- atraumatic Eyes- PERRL, EOMI, anicteric ENT- oropharynx clear Neck- supple, no JVD, no adenopathy, no thyromegaly; carotids +2/2, no bruits appreciated Lungs-positive scattered wheezing bilaterally, no crackles or rhonchi Heart- normal rate, regular rhythm; no murmur, no gallop, no rub appreciated Abdomen- normal bowel sounds, nondistended, soft, nontender, no masses or hepatosplenomegaly Extremities- Right knee: Mild tenderness, erythema, edema, warmth Right shoulder: Mild warmth no pretibial edema, no calf tenderness; peripheral pulses intact Neuro- alert, oriented x 3; CN 2-12 grossly intact; motor 5/5 bilaterally;sensation 100% on all extremities; no other gross focal neurologic deficits Skin- warm & dry Results & Data Vital Signs (Past 12 Hours) Vital Signs Temp Pulse Pulse Resp BP BP Pulse Ox 05/04/19 16:45 81 05/04/19 15:34 36.8 C 80 19 123/80 95 05/04/19 12:56 86 18 95 05/04/19 11:27 36.8 C 77 18 109/71 92 05/04/19 07:27 85 18 94 05/04/19 07:25 36.5 C 76 16 107/69 95
[2019-05-04] MEDS: GABAPENTIN 300 MG CAP PO SCH (20:27)
[2019-05-04] MEDS: ATORVASTATIN 10 MG TAB PO SCH (20:27)
[2019-05-04] MEDS: ASPIRIN 81 MG ECTAB PO SCH (20:27)
--- NOTE | 2019-05-04 21:07 | Ultrasound Report ---
US extremity nonvascular CLINICAL HISTORY: r/o right knee effusion COMPARISON STUDY: No previous studies for comparison. FINDINGS: Slightly complex fluid pocket lateral to the right knee measuring 6 x 3 cm. This appear to represent an asymmetric joint effusion. No additional abnormalities appreciated ultrasonically. IMPRESSION: 6 x 3 cm fluid collection and/or effusion lateral to the right knee. ACT 112: Negative or not required by law. The above report was generated using voice recognition software. It may contain grammatical, syntax or spelling errors. Electronically signed by: Ankit Nicholas M.D. 05/04/2019 9:05 PM
[2019-05-05] MEDS: IPRATROPIUM BROMIDE NEB SOLN 0.02% 2.5 ML VIAL INH SCH ×4 (00:05→19:03)
[2019-05-05] MEDS: LEVALBUTEROL 1.25MG/0.5ML NEB INH SCH ×4 (00:06→19:02)
[2019-05-05] MEDS: INSULIN ASPART 100 UNITS/ML 3 ML PEN SC SCH ×6 (00:24→20:59)
[2019-05-05] MEDS: methylPREDNISolone 40 MG in SYRINGE 0 ML IV SCH ×3 (02:04→17:57)
[2019-05-05] MEDS: LEVOTHYROXINE SODIUM 100 MCG TABLET PO SCH (06:20)
[2019-05-05] MEDS: FLUTICASONE/SALMETEROL 100/50 (ADVAIR) 14 PUFF/1 INHALER INH SCH ×2 (07:53→21:00)
[2019-05-05] MEDS: METOPROLOL SUCC 50MG EXT REL TAB PO SCH (07:53)
[2019-05-05] MEDS: FLUTICASONE PROPIONATE NA SPR 16 GM BTL SCH ×2 (07:53→21:00)
[2019-05-05] MEDS: PANTOprazole 40 MG TAB PO SCH ×2 (07:53→21:04)
[2019-05-05] MEDS: MoRPHine SULFATE CR 15 MG TABCR PO SCH ×2 (07:54→19:55)
[2019-05-05] MEDS: FLUOXETINE HCL 20 MG CAP PO SCH (07:54)
[2019-05-05] MEDS: GABAPENTIN 100 MG CAP PO SCH (07:54)
[2019-05-05] MEDS: MONTELUKAST SODIUM 10 MG TABLET PO SCH (07:54)
[2019-05-05] MEDS: DOXYCYCLINE HYCLATE 100 MG CAP PO SCH ×2 (07:58→21:04)
[2019-05-05] MEDS ORDERED: INSULIN GLARGINE SOLOSTAR 100 UNITS/ML 3 ML PEN SQ SCH (09:00)
[2019-05-05] MEDS: HEPARIN 100 UNIT/ML 5ML FLUSH FLUSH PRN (09:54)
[2019-05-05] MEDS ORDERED: INSULIN GLARGINE SOLOSTAR 100 UNITS/ML 3 ML PEN SQ ONE (12:15)
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
--- NOTE | 2019-05-05 15:03 | Pharmacy Report ---
Pharmacy Glycemic Short Note 2 - Date of Service May 05, 2019 - Glycemic Short BSG Results (Last 24 hours): 05/04/19 05/04/19 05/05/19 16:19 20:17 00:12 POC Glucose 197 H 123 H 161 H 05/05/19 05/05/19 05/05/19 03:56 07:29 11:27 POC Glucose 168 H 196 H 199 H OUTPATIENT ANTIDIABETIC REGIMEN: * N/A * A1c = 6.9% on 05/03/19 which would be "diagnostic for diabetes" however patient was recently on 2 prednisone tapers 03/10/19 & 04/19/19. This is likely artificially inflating A1c. ASSESSMENT: * 59yo female with steroid induced moderate hyperglycemia * Steroids increased from once daily prednisone to Solumedrol 40mg IV q8hrs (almost triple dosing). BSGs rising with increase steroid dosing. * Will increase insulin regimen and titrate based on BSG trends. * Will decrease insulin regimen with each step down in steroid dosing to prevent hypoglycemia PLAN FOR INPATIENT GLYCEMIC CONTROL: * Basal insulin: increase dosing * Lantus 20 units (~0.2 units/kg) SQ daily * Bolus insulin * NovoLog per scale ACHS or Q6hrs while NPO. Checks/coverage at 0000 & 0400 for RTC steroids. * Goal Range: Low 110 mg/dL - High 140 mg/dL * Correction Factor: 20 mg/dL/unit * Nutritional / Prandial insulin per carb ratio of 1 unit per 6 grams CHO consumed
--- NOTE | 2019-05-05 16:08 | Hospitalist Progress Note ---
Date of Service May 05, 2019 Assessment & Plan (1) Severe sepsis: COPD exacerbation secondary to possible Pneumonia, Bronchitis -- lactic acid normalized -- CXR: 1. Cardiomegaly without overt pulmonary edema. 2. Bibasilar opacities suggest probable atelectasis/scarring. Pneumonitis however would be difficult to exclude. --Blood cultures: Pending Sputum culture: Moderate normal dali, pending --CT chest: Small pulmonary nodules, infiltrates --Discussed with filing or registry clerk Patient gradually improving overall Will de-escalate IV Solu-Medrol to prednisone Continue doxycycline Continue nebs Patient needs to follow-up with her usual multi media specialist as scheduled next week Possible rheumatoid arthritis flare Patient currently takes leflunomide, discontinued last Wednesday due to fever and cough Patient also received Actemra but was discontinued last January for respiratory symptoms Reports increasing right shoulder and right knee pain and swelling Right knee ultrasound: IMPRESSION: 6 x 3 cm fluid collection and/or effusion lateral to the right knee. Ortho consulted: Awaiting recommendation Chart Picker consulted: Possible RA flare secondary to ongoing pneumonia/respiratory infection, agree with tapering course of steroids, needs to follow-up with rn diabetes educator next week as scheduled CAD status post stent -- no cardiac symptoms Hypertension -- BP on the lower side -- hold Amlodipine, Imdur Hyperlipidemia on statin Rx Hypothyroidism, euthyroid based on TSH Hyperglycemia rule out DM -- A1c 6.9 --Diabetic diet, will need close outpatient follow-up Hypokalemia secondary to diuretic Rx -- resolved chronic anemia, hemoglobin slightly lower than baseline -- 11--> 10 no signs of overt bleeding monitor -- Fe 17 will need Fe supplement further work up as outpatient DVT prophylaxis per Lovenox subcu Full code anticipate d/c home when medically stable Subjective Follow-up for asthma exacerbation Seen resting in bed, comfortable, not in distress Patient states she feels about the same Cough and sputum about the same No shortness of breath with ambulation in the room Right shoulder right knee pain improving No other symptoms Review of Systems Review of Systems: All systems reviewed & are unremarkable except as noted in HPI & below Physical Exam Physical Exam: General- oriented x 3, not in distress, speaks in sentences with no effort or accessory muscle use Eyes- anicteric Neck- no JVD Lungs-mild wheeze bilateral, no crackles Heart- normal rate, regular rhythm; no murmurs Abdomen- normal bowel sounds, nondistended, soft, nontender Extremities- Right knee swelling and warmth improving Right shoulder swelling improving no pretibial edema, no calf tenderness Neuro- alert, oriented x 3; no gross focal neurologic deficits Skin- warm & dry Results & Data Vital Signs (Past 12 Hours) Vital Signs Temp Pulse Resp BP Pulse Ox 05/05/19 13:15 106 H 18 94 05/05/19 11:08 36.7 C 82 18 137/84 96 05/05/19 07:27 86 18 94 05/05/19 07:11 36.7 C 87 18 164/84 H 93 05/05/19 04:35 36.6 C 83 20 129/80 91 Laboratory Results Laboratory Results - last 24 hr 05/05/19 05/06/19 05/06/19 20:10 01:44 04:49 POC Glucose 178 H 186 H 145 H 05/06/19 05/06/19 05/06/19 07:36 12:02 16:23 POC Glucose 138 H 117 H 167 H
--- NOTE | 2019-05-05 17:34 | Rheumatology Consultation ---
Rheumatology Consultation DOS May 05, 2019 Assessment & Plan (1) Rheumatoid arthritis: Home treatment of leflunomide 20 mg daily and monthly IV Actemra. She has only been on leflunomide for 1 week and has not received Actemra for several months. She should not resume leflunomide in the setting of an infection. Agree with steroids. Ok to transition to oral prednisone 40 mg daily with plan to taper by 10 mg every 2 days She has an appointment with her games dealer in [place] on Wednesday afternoon. Strongly recommended that she try to keep this appointment. Once she is off antibiotics, she can resume leflunomide (2) Morbid obesity due to excess calories: (3) Active asthma: (4) PNA (pneumonia): Currently on doxycycline and IV steroids She does have a weather analyst in [place]. I reviewed the CT scan report that she had on her patient portal from [place] that was done in May 2017 at which time, there were no mention of pulmonary nodules. Patient was advised to follow-up with her weather analyst and make sure she can get a copy of her CT scan from this hospitalization. Laterality: bilateral Lung location: lower lobe of lung Pneumonia type: due to unspecified organism Qualified Code(s): J18.9 - Pneumonia, unspecified organism (5) Plaque psoriasis: This began after she was placed on Humira in 2010. Not sure why she received Humira again or why she has not tried other TNF inhibitors to try to target both her psoriasis and RA. She reports that she follows with dermatology. She was encouraged to follow-up with her patient case coordinator as an outpatient. History of Present Illness Reason for Consultation: Rheumatoid arthritis flare 59 year old woman with history of seropositive (RF+/CCP+) rheumatoid arthritis diagnosed in 2004 and previously followed by [facility] until 2013 when she moved out of the area. She was admitted for fever and upper respiratory complaints. Her RA history is significant for onset of joint pain and swelling that initially began in a palindromic nature. She was found to be seropositive in 2004. Past treatments have included prednisone, Plaquenil (which caused hives), methotrexate for several years until it caused persistent nausea and fatigue, Humira which resulted in psoriasis, and IV Actemra from [id number] (which was very beneficial). She moved to [place] about 2 years ago and had to stop IV Actemra due to insurance issues. She was switched to subcutaneous Actemra which was not beneficial, then placed on Humira again which was not beneficial for her psoriasis or RA, she tried Xeljanz for 6 months which was not beneficial. She was finally approved to restart IV Actemra and received an infusion in January. She has not received any further infusions since January because of recurrent upper respiratory infections. She notes that she has been treated for pneumonia three times since July 2018 and bronchitis times 2 since January 2019. Because of recurrent URIs her Actemra has been held. She was placed on leflunomide 20 mg daily 1 week prior to admission but stopped it on Wednesday when she became febrile. She is in town visiting relatives and admits to several sick contacts (grandchildren with URI). She is not on a home baseline of prednisone but reports that she had just completed prednisone taper. Since admission, her right shoulder and knee have been painful. These are usually involved in her RA flare. She had an ultrasound of her knee that showed an effusion. She reports that she has had this knee drained in the past and has received steroid and gel shots with minimal improvement. Joint replacement has been discussed. Last gel shot was about a year ago. Has had concern for septic joint in the past but per patient, there was not enough fluid to remove from her knee during that time (May 2018). Did have right hip surgery in 2018. Allergies Allergy/AdvReac Type Severity Reaction Status Date / Time codeine Allergy Intermediate CODEINE=NAUSEA Verified 05/02/19 23:33 VICODIN = HIVES/ITCHING, PERCOCET = VOMITING Iodinated Contrast Media Allergy Intermediate HIVES Verified 05/02/19 23:33 hydroxychloroquine Allergy Unknown Unknown Verified 05/02/19 23:33 metronidazole Allergy Unknown Hives Verified 05/02/19 23:33 hydromorphone AdvReac NAUSEA Verified 05/02/19 23:33 Home Medications Home Medications Medication Instructions Recorded Confirmed Type albuterol sulfate [ProAir HFA] 1 - 2 puff INHALATION Q4H PRN 02/19/19 05/02/19 History aspirin 81 mg PO HS 02/19/19 05/02/19 History atorvastatin 10 mg PO QPM 02/19/19 05/02/19 History clobetasol 1 applic TOPICAL BID 02/19/19 05/02/19 History cyclobenzaprine 10 mg PO TID PRN 02/19/19 05/02/19 History fluoxetine 40 mg PO DAILY 02/19/19 05/02/19 History fluticasone propion-salmeterol 1 puff INHALATION BID 02/19/19 05/02/19 History fluticasone propionate [Flonase 1 spray INTRANASAL BID 02/19/19 05/02/19 History Allergy Relief] furosemide 40 mg PO DAILY 02/19/19 05/02/19 History gabapentin 100 mg PO DAILY 02/19/19 05/02/19 History gabapentin 300 mg PO QPM 02/19/19 05/02/19 History isosorbide mononitrate 30 mg PO QAM 02/19/19 05/02/19 History ketoconazole 1 applic TOPICAL HS 02/19/19 05/02/19 History levothyroxine 100 mcg PO DAILY 02/19/19 05/02/19 History melatonin 10 mg PO HS PRN 02/19/19 05/02/19 History metoprolol succinate 50 mg PO DAILY 02/19/19 05/02/19 History montelukast 10 mg PO DAILY 02/19/19 05/02/19 History mupirocin 1 applic TOPICAL QAM 02/19/19 05/02/19 History nitroglycerin [Nitrostat] 0.4 mg SUBLINGUAL DIRECTED PRN 02/19/19 05/02/19 History [id number]-epa-fish oil [[place]-3 1 cap PO DAILY 02/19/19 05/02/19 History Fish Oil] pantoprazole 40 mg PO BID 02/19/19 05/02/19 History polyethylene glycol 3350 17 g PO DAILY PRN 02/19/19 05/02/19 History promethazine 12.5 mg PO TID PRN 02/19/19 05/03/19 History spironolactone 25 mg PO DAILY 02/19/19 05/03/19 History triamcinolone acetonide 1 applic TOPICAL BID 02/19/19 05/03/19 History Patient History Medical History Active asthma Asthma Congestive heart failure Morbid obesity due to excess calories Multiple pulmonary nodules determined by computed tomography of lung Psoriatic arthritis Rheumatoid arthritis Rheumatoid arthritis Surgical History H/O heart artery stent Social History Preferred Language: Latvian Communication Ability: Effective Beliefs That Will Affect Care: None marital status: Legally Current Living Situation: Family Feels Safe at Home: Yes Safety Concerns: Feels Safe At This Time Smoking Status: Former smoker Do You Dip or Chew Tobacco: No ; Second Hand Exposure: Yes ; Hx Alcohol Use: No Hx Substance Use: No Review of Systems Constitutional: + fever, + fatigue and + malaise Eyes: + dry eyes; no photophobia Ear, Nose, Mouth, Throat: no sore throat and no pain with swallowing Respiratory: + chest congestion and + dyspnea Cardiovascular: no chest pain, no dyspnea at rest and no palpitations Gastrointestinal: no abdominal pain, no nausea and no vomiting Genitourinary: no urinary frequency and no urinary urgency Musculoskeletal: + joint pain, + swelling and + stiffness Integumentary: active psoriatic plaques Neurologic: no gait abnormality, no falls, no numbness and no radiating pain Endocrine: + fatigue Physical Exam Physical Exam: GEN: she was sitting up in bed in no acute distress. Neuro: Alert and oriented x 3, fluent speech ENT: no oral ulcers, moist mucus membranes CV: regular rate and rhythm without murmurs Resp: coarse breath sounds throughout; no use of accessory muscles MSK: tenderness of right shoulder and right knee. Knee crepitus. Knees are cool to touch. Good ROM of all joints Skin: large psoriatic plaques on lower abdomen, upper thigh; dry flaky scalp, dystrophic finger and toenails Results & Data Vital Signs (Past 12 Hours) Vital Signs Temp Pulse Pulse Resp BP BP Pulse Ox 05/05/19 16:30 87 05/05/19 16:13 36.8 C 84 18 168/100 H 95 05/05/19 13:15 106 H 18 94 05/05/19 11:08 36.7 C 82 18 137/84 96 05/05/19 07:27 86 18 94 05/05/19 07:11 36.7 C 87 18 164/84 H 93
--- NOTE | 2019-05-05 19:06 | Orthopedic Consultation ---
Date of Consultation May 05, 2019 Assessment & Plan (1) Knee effusion, right: Will obtain updated x-rays of the right knee today or tomorrow. Discussed possible aspiration and injection after the x-rays are performed. WBAT RLE at this time. Will re-evaluate patient after films are complete. May consider NSAIDs prn if patient is able to tolerate. (2) Osteoarthritis of right knee: (3) Rheumatoid arthritis: History of Present Illness Reason for Consultation: right knee swelling and pain Attending Physician: Celio Casas MD History of Present Illness This is a patient who has been admitted for pneumonia 3 days ago. She is in town visiting her son. She lives in [place] at this time. She states a hx of rheumatoid arthritis and states her knees have bone on bone arthritis. She's been treated with corticosteroid injections and viscosupplement injections, the last of which was June of 2018. She did not get any relief from either of the tx's. She states she's been told she will probably need a knee replacement in the near future. More recently, she started having increased right knee swelling and pain. She's had an inability to fully extend the right knee. She's also having trouble with ambulation. She denies any recent injury or twisting of the knee. Allergies Allergy/AdvReac Type Severity Reaction Status Date / Time codeine Allergy Intermediate CODEINE=NAUSEA Verified 05/02/19 23:33 VICODIN = HIVES/ITCHING, PERCOCET = VOMITING Iodinated Contrast Media Allergy Intermediate HIVES Verified 05/02/19 23:33 hydroxychloroquine Allergy Unknown Unknown Verified 05/02/19 23:33 metronidazole Allergy Unknown Hives Verified 05/02/19 23:33 hydromorphone AdvReac NAUSEA Verified 05/02/19 23:33 Home Medications Home Medications Medication Instructions Recorded Confirmed Type albuterol sulfate [ProAir HFA] 1 - 2 puff INHALATION Q4H PRN 02/19/19 05/02/19 History aspirin 81 mg PO HS 02/19/19 05/02/19 History atorvastatin 10 mg PO QPM 02/19/19 05/02/19 History clobetasol 1 applic TOPICAL BID 02/19/19 05/02/19 History cyclobenzaprine 10 mg PO TID PRN 02/19/19 05/02/19 History fluoxetine 40 mg PO DAILY 02/19/19 05/02/19 History fluticasone propion-salmeterol 1 puff INHALATION BID 02/19/19 05/02/19 History fluticasone propionate [Flonase 1 spray INTRANASAL BID 02/19/19 05/02/19 History Allergy Relief] furosemide 40 mg PO DAILY 02/19/19 05/02/19 History gabapentin 100 mg PO DAILY 02/19/19 05/02/19 History gabapentin 300 mg PO QPM 02/19/19 05/02/19 History isosorbide mononitrate 30 mg PO QAM 02/19/19 05/02/19 History ketoconazole 1 applic TOPICAL HS 02/19/19 05/02/19 History levothyroxine 100 mcg PO DAILY 02/19/19 05/02/19 History melatonin 10 mg PO HS PRN 02/19/19 05/02/19 History metoprolol succinate 50 mg PO DAILY 02/19/19 05/02/19 History montelukast 10 mg PO DAILY 02/19/19 05/02/19 History mupirocin 1 applic TOPICAL QAM 02/19/19 05/02/19 History nitroglycerin [Nitrostat] 0.4 mg SUBLINGUAL DIRECTED PRN 02/19/19 05/02/19 History clxnt-1i-vdu-epa-fish oil [Ronco-3 1 cap PO DAILY 02/19/19 05/02/19 History Fish Oil] pantoprazole 40 mg PO BID 02/19/19 05/02/19 History polyethylene glycol 3350 17 g PO DAILY PRN 02/19/19 05/02/19 History promethazine 12.5 mg PO TID PRN 02/19/19 05/03/19 History spironolactone 25 mg PO DAILY 02/19/19 05/03/19 History triamcinolone acetonide 1 applic TOPICAL BID 02/19/19 05/03/19 History Patient History Medical History Active asthma Asthma Congestive heart failure Morbid obesity due to excess calories Multiple pulmonary nodules determined by computed tomography of lung Psoriatic arthritis Rheumatoid arthritis Rheumatoid arthritis Surgical History H/O heart artery stent Social History Preferred Language: Pashto Communication Ability: Effective Beliefs That Will Affect Care: None marital status: Legally Current Living Situation: Family Feels Safe at Home: Yes Safety Concerns: Feels Safe At This Time Smoking Status: Former smoker Do You Dip or Chew Tobacco: No ; Second Hand Exposure: Yes ; Hx Alcohol Use: No Hx Substance Use: No Physical Exam Constitutional: WD/WN, vitals as above + obese; no acute distress ENMT: external ear and nose normal, oropharynx normal Neck: trachea midline, no thyromegaly Musculoskeletal: Knee: + effusion (right knee--moderate), + knee ROM with crepitation (mild right knee. ROM -3 to 80 degrees.), + joint line tenderness (right knee medial joint line and popliteal area of knee) and + varus alignment (bilateral knees); no skin erythema and normal ROM of knee Skin: no rashes, warm and dry Neurologic: normal touch/pain/proprioception Psychiatric: A+Ox3, euthymic affect Speech: normal rate/rhythm/volume of speech Results & Data Vital Signs (Past 12 Hours) Vital Signs Temp Pulse Pulse Resp BP BP Pulse Ox 05/05/19 16:30 87 05/05/19 16:13 36.8 C 84 18 168/100 H 95 05/05/19 13:15 106 H 18 94 05/05/19 11:08 36.7 C 82 18 137/84 96 05/05/19 07:27 86 18 94 05/05/19 07:11 36.7 C 87 18 164/84 H 93
--- NOTE | 2019-05-05 19:36 | XRay Report ---
XR knee RT 4V CLINICAL HISTORY: right knee effusion, states hx of DJD COMPARISON STUDY: None. FINDINGS: Moderate joint effusion. Severe osteoarthritis of the medial compartment [id number] artic ulation. Subchondral lucency with a possible fractured osteophyte at the medial femoral condyle. The subchondral lucency measures 7.5 mm and could be due to long-standing degenerative change or an osteo chondral lesion. Mild cartilage space narrowing within the lateral compartment. There is also moderat e cartilage space narrowing within the patellofemoral joint. Mild anterior soft tissue swelling. IMPRESSION: 1. Tricompartmental osteoarthritis most pronounced at the medial compartment which demonstrates bone- on-bone articulation. 2. Moderate joint effusion and mild anterior soft tissue swelling. 3. A 7.5 mm subchondral lucency at the medial femoral condyle with an adjacent osteophyte which may b e fractured. This raises the possibility of an osteochondral defect. ACT 112: Negative or not required by law. Electronically signed by: Alber Tijerina M.D. 05/05/2019 7:35 PM
[2019-05-05] MEDS: ENOXAPARIN INJ 40 MG/0.4 ML SYR SQ SCH (21:00)
[2019-05-05] MEDS: ASPIRIN 81 MG ECTAB PO SCH (21:04)
[2019-05-05] MEDS: ATORVASTATIN 10 MG TAB PO SCH (21:04)
[2019-05-05] MEDS: GABAPENTIN 300 MG CAP PO SCH (21:04)
[2019-05-06] MEDS: IPRATROPIUM BROMIDE NEB SOLN 0.02% 2.5 ML VIAL INH SCH ×4 (01:03→19:16)
[2019-05-06] MEDS: LEVALBUTEROL 1.25MG/0.5ML NEB INH SCH ×4 (01:03→19:16)
[2019-05-06] MEDS: INSULIN ASPART 100 UNITS/ML 3 ML PEN SC SCH ×6 (01:55→20:08)
[2019-05-06] MEDS: LEVOTHYROXINE SODIUM 100 MCG TABLET PO SCH (06:18)
[2019-05-06] MEDS: FLUTICASONE/SALMETEROL 100/50 (ADVAIR) 14 PUFF/1 INHALER INH SCH ×2 (07:56→20:04)
[2019-05-06] MEDS: MoRPHine SULFATE CR 15 MG TABCR PO SCH ×2 (07:56→20:05)
[2019-05-06] MEDS: GABAPENTIN 100 MG CAP PO SCH (07:56)
[2019-05-06] MEDS: FLUTICASONE PROPIONATE NA SPR 16 GM BTL SCH ×2 (07:57→20:04)
[2019-05-06] MEDS: INSULIN GLARGINE SOLOSTAR 100 UNITS/ML 3 ML PEN SQ SCH (07:57)
[2019-05-06] MEDS: MONTELUKAST SODIUM 10 MG TABLET PO SCH (07:58)
[2019-05-06] MEDS: METOPROLOL SUCC 50MG EXT REL TAB PO SCH (07:58)
[2019-05-06] MEDS: DOXYCYCLINE HYCLATE 100 MG CAP PO SCH ×2 (07:58→20:05)
[2019-05-06] MEDS: PANTOprazole 40 MG TAB PO SCH ×2 (07:58→20:05)
[2019-05-06] MEDS: FLUOXETINE HCL 20 MG CAP PO SCH (07:59)
--- NOTE | 2019-05-06 08:10 | Orthopedic Progress Note ---
Date of Service May 06, 2019 Assessment & Plan (1) Osteoarthritis of right knee: right now her pain is much improved on the steroids, do not see any reason to aspirate the knee at this time. her x-rays show bone on bone medial compartment and mild to moderate lateral compartment and PF joint. the subchondral lucency noted on x-ray appears to be old and likely due to long- standing DJD of the knee. we discussed options including cortisone injection, visco injection and ultimately will likely require a TKA in the future. At this point though she is responding well to the steroids and would recommend continuation of this and feel her transition to PO as outpatient would also be beneficial. she should f/u with her Rheum and Ortho and Gila for follow up, she also has appt with Rheum on Wednesday. at this point Ortho will sign off, if her pain worsens or does not continue to improve, please feel free to contact us with any questions or concerns. (2) Knee effusion, right: (3) Rheumatoid arthritis: Subjective Right knee pain currently she states she is having little pain in her knee, much improved with the steroids. she denies thigh or calf pain; Physical Exam Physical Exam: Vital Signs Temp Pulse Pulse Resp BP BP Pulse Ox 05/06/19 07:34 36.4 C L 20 100/63 05/06/19 07:11 81 18 93 05/06/19 01:03 83 16 94 05/06/19 00:26 36.8 C 83 20 140/85 92 05/05/19 19:45 36.9 C 83 18 168/94 H 95 05/05/19 19:03 66 16 96 05/05/19 16:30 87 05/05/19 16:13 36.8 C 84 18 168/100 H 95 05/05/19 13:15 106 H 18 94 05/05/19 11:08 36.7 C 82 18 137/84 96 Intake and Output 05/05/19 05/06/19 05/06/19 22:59 06:59 14:59 Intake Total 250 / 650 Balance 250 / 650 Intake: Oral 250 / 650 Other: Weight 111.9 kg Constitutional: WD/WN, vitals as above no acute distress Musculoskeletal: Knee: + effusion (+2) and + joint line tenderness (medial joint line); no deformity, no skin erythema, no ecchymosis, no valgus laxity and no varus laxity Results & Data Vital Signs (Past 12 Hours) Vital Signs Temp Pulse Resp BP Pulse Ox 05/06/19 07:34 36.4 C L 20 100/63 05/06/19 07:11 81 18 93 05/06/19 01:03 83 16 94 05/06/19 00:26 36.8 C 83 20 140/85 92 Laboratory Results Laboratory Results WBC 13.97 K/uL (4.8-10.8) H 05/03/19 05:15 RBC 3.56 M/uL (4.2-5.4) L 05/03/19 05:15 Hgb 10.0 g/dL (12.0-16.0) L 05/03/19 05:15 Hct 31.5 % (37-47) L 05/03/19 05:15 MCV 88.5 fL (80-100) 05/03/19 05:15 MCH 28.1 pg (25-34) 05/03/19 05:15 MCHC 31.7 g/dL (32-36) L 05/03/19 05:15 RDW Std Deviation 48.5 fL (36.4-46.3) H 05/03/19 05:15 RDW Coeff of Devendra 15.0 % (11.5-14.5) H 05/03/19 05:15 Plt Count 322 K/uL (130-400) 05/03/19 05:15 MPV 9.7 fL (7.4-10.4) 05/03/19 05:15 Immature Gran % (Auto) 0.3 % 05/03/19 05:15 Neut % (Auto) 85.5 % 05/03/19 05:15 Lymph % (Auto) 5.0 % 05/03/19 05:15 Garrard % (Auto) 7.7 % 05/03/19 05:15 Eos % (Auto) 1.3 % 05/03/19 05:15 Baso % (Auto) 0.2 % 05/03/19 05:15 Reticulocyte % (Auto) 1.6 % (0.5-2.0) 05/03/19 05:15 Immature Gran # (Auto) 0.04 K/uL (0.00-0.02) H 05/03/19 05:15 Neut # (Auto) 11.95 K/uL (1.4-6.5) H 05/03/19 05:15 Lymph # (Auto) 0.70 K/uL (1.2-3.4) L 05/03/19 05:15 Garrard # (Auto) 1.07 K/uL (0.11-0.59) H 05/03/19 05:15 Eos # (Auto) 0.18 K/uL (0-0.5) 05/03/19 05:15 Baso # (Auto) 0.03 K/uL (0-0.2) 05/03/19 05:15 Reticulocyte # 0.06 10^6/uL (0.02-0.10) 05/03/19 05:15 PT 10.3 Seconds (9.0-12.0) 05/02/19 21:14 INR 1.0 (0.9-1.1) 05/02/19 21:14 APTT 30.6 Seconds (21.0-31.0) 05/02/19 21:14 PTT Ratio 1.1 05/02/19 21:14 Sodium 136 mmol/L (136-145) 05/03/19 05:15 Potassium 3.9 mmol/L (3.5-5.1) 05/03/19 05:15 Chloride 104 mmol/L (98-107) 05/03/19 05:15 Carbon Dioxide 26 mmol/L (21-32) 05/03/19 05:15 Anion Gap 6.0 (3-11) 05/03/19 05:15 BUN 8 mg/dl (7-18) D 05/03/19 05:15 Creatinine 0.69 mg/dl (0.6-1.2) 05/03/19 05:15 Est Cr Clr Drug Dosing 104.4 ml/min 05/03/19 05:15 Est GFR ( Amer) 108.9 05/03/19 05:15 Est GFR (Non-Af Amer) 94.0 05/03/19 05:15 BUN/Creatinine Ratio 11.0 (10-20) 05/03/19 05:15 Glucose 124 mg/dl (70-99) H 05/03/19 05:15 POC Glucose 138 (70-99) H 05/06/19 07:36 Estimat Average Glucose 151 mg/dl 05/03/19 01:27 Hemoglobin A1c 6.9 % (4.5-5.6) H 05/03/19 01:27 Lactate 1.1 mmol/L (0.4-2.0) 05/03/19 01:27 Calcium 8.5 mg/dl (8.5-10.1) 05/03/19 05:15 Magnesium 2.0 mg/dl (1.8-2.4) 05/02/19 21:14 Iron 17 mcg/dl (35-150) L 05/03/19 05:15 TIBC 269 mcg/dl (250-450) 05/03/19 05:15 Transferrin 212 mg/dl (200-360) 05/03/19 05:15 Ferritin 181.9 ng/ml (8-388) 05/03/19 05:15 Total Bilirubin 0.3 mg/dl (0.2-1) 05/02/19 21:14 AST 13 U/L (15-37) L 05/02/19 21:14 ALT 18 U/L (12-78) 05/02/19 21:14 Alkaline Phosphatase 84 U/L (45-117) 05/02/19 21:14 Troponin I < 0.015 ng/ml (0-0.045) 05/02/19 21:14 Total Protein 6.8 gm/dl (6.4-8.2) 05/02/19 21:14 Albumin 2.6 gm/dl (3.4-5.0) L 05/02/19 21:14 Globulin 4.2 gm/dl (2.5-4.0) H 05/02/19 21:14 Albumin/Globulin Ratio 0.6 (0.9-2) L 05/02/19 21:14 Vitamin B12 1323 pg/ml (211-911) H 05/03/19 05:15 Folate 22.74 ng/ml (>5.38) 05/03/19 05:15 Procalcitonin 0.05 ng/ml (0-0.5) 05/02/19 21:14 TSH 2.550 uIu/ml (0.300-4.500) 05/03/19 01:27 Urine Color Yellow 05/02/19 20:20 Urine Appearance Cloudy (Clear) A 05/02/19 20:20 Urine pH 7.5 (4.5-7.5) 05/02/19 20:20 Ur Specific Bitely 1.018 (1.000-1.030) 05/02/19 20:20 Urine Protein Negative (Negative) 05/02/19 20:20 Urine Glucose (UA) Negative (Negative) 05/02/19 20:20 Urine Ketones Negative (Negative) 05/02/19 20:20 Urine Blood Negative (Negative) 05/02/19 20:20 Urine Nitrite Negative (Negative) 05/02/19 20:20 Urine Bilirubin Negative (Negative) 05/02/19 20:20 Urine Urobilinogen Negative (Negative) 05/02/19 20:20 Ur Leukocyte Esterase Negative (Negative) 05/02/19 20:20 Urine WBC (Auto) 1-5 /hpf (0-5) 05/02/19 20:20 Urine RBC (Auto) 0-4 /hpf (0-4) 05/02/19 20:20 U Hyaline Cast (Auto) 1-5 /lpf (0-5) 05/02/19 20:20 U Epithel Cells (Auto) 20-30 /lpf (0-5) H 05/02/19 20:20 Urine Bacteria (Auto) Negative (Negative) 05/02/19 20:20 Influenza Type A (PCR) Neg for Influ A (Neg) 05/02/19 21:22 Influenza Type B (PCR) Neg for Influ B (Neg) 05/02/19 21:22 Blood Type O Positive 05/03/19 05:15 Antibody Screen NEGATIVE 05/03/19 05:15 Diagnostic Findings XR knee RT 4V CLINICAL HISTORY: right knee effusion, states hx of DJD COMPARISON STUDY: None. FINDINGS: Moderate joint effusion. Severe osteoarthritis of the medial compartment [id number] articulation. Subchondral lucency with a possible fractured osteophyte at the medial femoral condyle. The subchondral lucency measures 7.5 mm and could be due to long-standing degenerative change or an osteochondral lesion. Mild cartilage space narrowing within the lateral compartment. There is also moderate cartilage space narrowing within the patellofemoral joint. Mild anterior soft tissue swelling. IMPRESSION: 1. Tricompartmental osteoarthritis most pronounced at the medial compartment which demonstrates [id number] articulation. 2. Moderate joint effusion and mild anterior soft tissue swelling. 3. A 7.5 mm subchondral lucency at the medial femoral condyle with an adjacent osteophyte which may be fractured. This raises the possibility of an osteochondral defect.
[2019-05-06] MEDS ORDERED: INSULIN GLARGINE SOLOSTAR 100 UNITS/ML 3 ML PEN SQ SCH (09:00)
[2019-05-06] MEDS: predniSONE 20 MG TAB PO SCH (10:10)
--- NOTE | 2019-05-06 11:53 | Pharmacy Report ---
Pharmacy Glycemic Short Note 2 - Date of Service May 06, 2019 - Glycemic Short BSG Results (Last 24 hours): 05/05/19 05/05/19 05/06/19 16:18 20:10 01:44 POC Glucose 158 H 178 H 186 H 05/06/19 05/06/19 04:49 07:36 POC Glucose 145 H 138 H OUTPATIENT ANTIDIABETIC REGIMEN: * N/A * A1c = 6.9% on 05/03/19 which would be "diagnostic for diabetes" however patient was recently on 2 prednisone tapers 03/10/19 & 04/19/19. This is likely artifi cially inflating A1c. ASSESSMENT: * 59yo female with steroid induced moderate hyperglycemia * 05/05/19: Steroids increased from once daily prednisone to Solumedrol 40mg IV q8hrs (almost triple dosing). BSGs rising with increase steroid dosing. Increased insulin regimen and titrate based on BSG trends. * 05/06/19: Steroids/Solumedrol DC today. Will decrease insulin regimen with each step down in steroid dosing to prevent hypoglycemia. Resume regimen from 05/04/19 but at slightly reduced CF/CR since pt did receive prednisone PLAN FOR INPATIENT GLYCEMIC CONTROL: * Basal insulin: decrease dosing * Lantus 5 units SQ daily * Bolus insulin: loosen CF/CR * NovoLog per scale ACHS or Q6hrs while NPO. * Goal Range: Low 110 mg/dL - High 140 mg/dL * Correction Factor: 30 mg/dL/unit * Nutritional / Prandial insulin per carb ratio of 1 unit per 10 grams CHO consumed
[2019-05-06] MEDS ORDERED: LACTULOSE SYRUP 10 GM/15 ML BTL 960 ML PO PRN (14:16)
[2019-05-06] MEDS ORDERED: MAGNESIUM HYDROXIDE SUSP 30 ML UDC PO PRN (14:16)
[2019-05-06] MEDS: FUROSEMIDE 20 MG TAB PO SCH (15:10)
[2019-05-06] MEDS: guaiFENesin 600 MG TABCR PO SCH ×2 (15:10→20:06)
[2019-05-06] MEDS: DOCUSATE SODIUM/SENNA 50/8.6MG TAB PO SCH (15:10)
[2019-05-06] MEDS: BENZONATATE 100 MG CAPSULE PO PRN ×2 (15:15→23:56)
--- NOTE | 2019-05-06 17:52 | Hospitalist Progress Note ---
Date of Service May 06, 2019 Assessment & Plan (1) Severe sepsis: COPD exacerbation secondary to possible Pneumonia, Bronchitis -- lactic acid normalized -- CXR: 1. Cardiomegaly without overt pulmonary edema. 2. Bibasilar opacities suggest probable atelectasis/scarring. Pneumonitis however would be difficult to exclude. --Blood cultures: Pending Sputum culture: Moderate normal dali, pending --CT chest: Small pulmonary nodules, infiltrates --Continues to improve gradually Weaned off oxygen Transition from Solu-Medrol to prednisone 60 mg p.o. daily then taper gradually Continue doxycycline complete 7 days Continue nebs Patient needs to follow-up with her usual control specialist as scheduled next week Possible rheumatoid arthritis flare Patient currently takes leflunomide, discontinued last Wednesday due to fever and cough Patient also received Actemra but was discontinued last January for respiratory symptoms Reports increasing right shoulder and right knee pain and swelling Right knee ultrasound: IMPRESSION: 6 x 3 cm fluid collection and/or effusion lateral to the right knee. Ortho consulted: Aspiration not recommended at this time, continue to follow-up with commercial litigation attorney Numerical Tool Programmer consulted: Possible RA flare secondary to ongoing pneumonia/respiratory infection, agree with tapering course of steroids, needs to follow-up with commercial litigation attorney next week as scheduled CAD status post stent -- no cardiac symptoms Hypertension -- BP on the lower side -- hold Amlodipine, Imdur Hyperlipidemia on statin Rx Hypothyroidism, euthyroid based on TSH Hyperglycemia rule out DM -- A1c 6.9 --Diabetic diet, will need close outpatient follow-up Hypokalemia secondary to diuretic Rx -- resolved Chronic anemia, hemoglobin slightly lower than baseline -- 11--> 10 no signs of overt bleeding monitor -- Fe 17 will need Fe supplement further work up as outpatient DVT prophylaxis per Lovenox subcu Full code anticipate d/c home when medically stable, likely tomorrow Subjective Follow-up for COPD exacerbation Seen resting in bed comfortable, sitting up States breathing slightly better Still has persistent cough but less , also less sputum Right shoulder and right knee pain resolved No other symptoms Review of Systems Review of Systems: All systems reviewed & are unremarkable except as noted in HPI & below Physical Exam Physical Exam: General- oriented x 3, not in distress, speaks in sentences with no effort or accessory muscle use Eyes- anicteric Neck- no JVD Lungs-faint wheezes bilaterally at the bases, no crackles or wheezing Heart- normal rate, regular rhythm; no murmurs Abdomen- normal bowel sounds, nondistended, soft, nontender Extremities- Right shoulder swelling: Resolved Right knee swelling and warmth: Resolved no pretibial edema, no calf tenderness Neuro- alert, oriented x 3; no gross focal neurologic deficits Skin- warm & dry Results & Data Vital Signs (Past 12 Hours) Vital Signs Temp Pulse Resp BP Pulse Ox 05/06/19 14:54 36.5 C 93 H 18 155/92 H 93 05/06/19 13:19 64 18 95 05/06/19 07:34 36.4 C L 20 100/63 05/06/19 07:11 81 18 93
[2019-05-06] MEDS: ENOXAPARIN INJ 40 MG/0.4 ML SYR SQ SCH (20:04)
[2019-05-06] MEDS: ASPIRIN 81 MG ECTAB PO SCH (20:06)
[2019-05-06] MEDS: ATORVASTATIN 10 MG TAB PO SCH (20:06)
[2019-05-06] MEDS: GABAPENTIN 300 MG CAP PO SCH (20:06)
[2019-05-07] MEDS: LEVALBUTEROL 1.25MG/0.5ML NEB INH SCH ×4 (00:16→19:18)
[2019-05-07] MEDS: IPRATROPIUM BROMIDE NEB SOLN 0.02% 2.5 ML VIAL INH SCH ×4 (00:17→19:18)
[2019-05-07] MEDS: LEVOTHYROXINE SODIUM 100 MCG TABLET PO SCH (05:48)
[2019-05-07] MEDS: MoRPHine SULFATE CR 15 MG TABCR PO SCH ×2 (09:01→20:07)
[2019-05-07] MEDS: FLUTICASONE/SALMETEROL 100/50 (ADVAIR) 14 PUFF/1 INHALER INH SCH (09:01)
[2019-05-07] MEDS: FLUTICASONE PROPIONATE NA SPR 16 GM BTL SCH ×2 (09:01→20:07)
[2019-05-07] MEDS: INSULIN GLARGINE SOLOSTAR 100 UNITS/ML 3 ML PEN SQ SCH (09:02)
[2019-05-07] MEDS: INSULIN ASPART 100 UNITS/ML 3 ML PEN SC SCH ×4 (09:02→20:46)
[2019-05-07] MEDS: guaiFENesin 600 MG TABCR PO SCH ×2 (09:05→20:07)
[2019-05-07] MEDS: FUROSEMIDE 20 MG TAB PO SCH (09:05)
[2019-05-07] MEDS: PANTOprazole 40 MG TAB PO SCH ×2 (09:05→20:07)
[2019-05-07] MEDS: DOCUSATE SODIUM/SENNA 50/8.6MG TAB PO SCH (09:05)
[2019-05-07] MEDS: DOXYCYCLINE HYCLATE 100 MG CAP PO SCH ×2 (09:06→20:07)
[2019-05-07] MEDS: FLUOXETINE HCL 20 MG CAP PO SCH (09:06)
[2019-05-07] MEDS: predniSONE 20 MG TAB PO SCH (09:07)
[2019-05-07] MEDS: METOPROLOL SUCC 50MG EXT REL TAB PO SCH (09:07)
[2019-05-07] MEDS: MONTELUKAST SODIUM 10 MG TABLET PO SCH (09:07)
[2019-05-07] MEDS: GABAPENTIN 100 MG CAP PO SCH (09:08)
[2019-05-07] MEDS: BENZONATATE 100 MG CAPSULE PO PRN ×2 (09:21→21:32)
[2019-05-07] MEDS ORDERED: bisacodyL 10 MG SUPP PR STA (15:05)
[2019-05-07] MEDS ORDERED: LACTULOSE SYRUP 30 GM/45 ML UDP PO PRN (15:13)
--- NOTE | 2019-05-07 15:20 | Hospitalist Progress Note ---
Date of Service May 07, 2019 Assessment & Plan (1) Severe sepsis: COPD exacerbation secondary to possible Pneumonia, Bronchitis -- lactic acid normalized -- CXR: 1. Cardiomegaly without overt pulmonary edema. 2. Bibasilar opacities suggest probable atelectasis/scarring. Pneumonitis however would be difficult to exclude. --Blood cultures: Pending Sputum culture: Moderate normal dali, pending --CT chest: Small pulmonary nodules, infiltrates -- Weaned off oxygen Transitioned from Solu-Medrol to prednisone 60 mg p.o. daily then taper gradually--> continue to monitor while on Prednisone Continue doxycycline complete 7 days Continue nebs Patient needs to follow-up with her usual pharmacy retail support specialist as scheduled next week Possible rheumatoid arthritis flare Patient currently takes leflunomide, discontinued last Wednesday due to fever and cough Patient also received Actemra but was discontinued last January for respiratory symptoms Reports increasing right shoulder and right knee pain and swelling Right knee ultrasound: IMPRESSION: 6 x 3 cm fluid collection and/or effusion lateral to the right knee. Ortho consulted: Aspiration not recommended at this time, continue to follow-up with skiver blockers Mercerizing Range Controller consulted: Possible RA flare secondary to ongoing pneumonia/respiratory infection, agree with tapering course of steroids, needs to follow-up with skiver blockers next week as scheduled --> continue monitoring on Prednisone CAD status post stent -- no cardiac symptoms Hypertension -- BP on the lower side -- hold Amlodipine, Imdur Hyperlipidemia on statin Rx Hypothyroidism, euthyroid based on TSH Hyperglycemia rule out DM -- A1c 6.9 --Diabetic diet, will need close outpatient follow-up Hypokalemia secondary to diuretic Rx -- resolved Chronic anemia, hemoglobin slightly lower than baseline -- 11--> 10 no signs of overt bleeding monitor -- Fe 17 will need Fe supplement further work up as outpatient DVT prophylaxis per Lovenox subcu Full code anticipate d/c home when medically stable, likely tomorrow Subjective ff up for COPD exacerbation seen resting in bed, having a snack comfortable, not in distress states breathing is about the same as yesterday, occasionally "tight" no cough, sputum right shoulder and knee discomfort slightly increased today no other symptoms Review of Systems Review of Systems: All systems reviewed & are unremarkable except as noted in HPI & below Physical Exam Physical Exam: General- oriented x 3, not in distress, speaks in sentences with no effort or accessory muscle use Eyes- anicteric Neck- no JVD Lungs-faint rhonchi bl no wheezing Heart- normal rate, regular rhythm; no murmurs Abdomen- normal bowel sounds, nondistended, soft, nontender Extremities- no pretibial edema, no calf tenderness right shoulder and knee: no swelling, erythema, tenderness Neuro- alert, oriented x 3; no gross focal neurologic deficits Skin- warm & dry Results & Data Vital Signs (Past 12 Hours) Vital Signs Temp Pulse Resp BP Pulse Ox 05/07/19 14:48 36.6 C 85 18 122/79 90 05/07/19 13:18 88 18 93 05/07/19 07:15 74 16 96 05/07/19 07:01 36.6 C 102 H 20 104/67 96
[2019-05-07] MEDS ORDERED: FUROSEMIDE 20 MG TAB PO STA (15:23)
[2019-05-07 16:06] LABS: Hematocrit (blood only) 36.2 % (37-47); Hemoglobin 11.4 g/dL (12.0-16.0); Mean Corpuscular Hemoglobin 28.3 pg (25-34); Mean Corpuscular Hgb Conc 31.5 g/dL (32-36); Mean Corpuscular Volume 89.8 fL (80-100); Mean Platelet Volume 9.1 fL (7.4-10.4); Platelet Count 464 K/uL (130-400); RDW Coefficient of Variation 14.9 % (11.5-14.5); RDW Standard Deviation 48.8 fL (36.4-46.3); Red Blood Count 4.03 M/uL (4.2-5.4); White Blood Count 13.33 K/uL (4.8-10.8)
[2019-05-07 16:23] LABS: BUN Creatinine Ratio 25.1 (10-20); Calcium 9.4 mg/dl (8.5-10.1); Creatinine Clr Calc Pharmacy 70.9 ml/min; Est GFR (African American) 68.8; Est GFR (Non-African American) 59.3; Potassium 4.2 mmol/L (3.5-5.1)
[2019-05-07 16:26] LABS: Basophils # (auto) 0.02 K/uL (0-0.2); Basophils % (auto) 0.2 %; Eosinophils # (auto) 0.03 K/uL (0-0.5); Eosinophils % (auto) 0.2 %; Immature Granulocytes # (auto) 0.99 K/uL (0.00-0.02); Immature Granulocytes % (auto) 7.4 %; Lymphocytes # (auto) 0.48 K/uL (1.2-3.4); Lymphocytes % (auto) 3.6 %; Monocytes # (auto) 0.79 K/uL (0.11-0.59); Monocytes % (auto) 5.9 %; Neutrophils # (auto) 11.02 K/uL (1.4-6.5); Neutrophils % (auto) 82.7 %
[2019-05-07] MEDS: FLUTICASONE/SALMETEROL 250/50 (ADVAIR) 14 PUFF/1 INHALER INH SCH (20:07)
[2019-05-07] MEDS: GABAPENTIN 300 MG CAP PO SCH (20:07)
[2019-05-07] MEDS: ATORVASTATIN 10 MG TAB PO SCH (20:07)
[2019-05-07] MEDS: ANUSOL SUPP 1 EA PR SCH (20:08)
[2019-05-08] MEDS: IPRATROPIUM BROMIDE NEB SOLN 0.02% 2.5 ML VIAL INH SCH ×4 (01:13→19:19)
[2019-05-08] MEDS: LEVALBUTEROL 1.25MG/0.5ML NEB INH SCH ×4 (01:13→19:19)
[2019-05-08] MEDS: HEPARIN 100 UNIT/ML 5ML FLUSH FLUSH PRN (05:36)
[2019-05-08] MEDS: LEVOTHYROXINE SODIUM 100 MCG TABLET PO SCH (05:50)
[2019-05-08 06:52] LABS: Creatinine Clr Calc Pharmacy 97.8 ml/min; Est GFR (African American) 101.3; Est GFR (Non-African American) 87.4
[2019-05-08] MEDS: METOPROLOL SUCC 50MG EXT REL TAB PO SCH (08:40)
[2019-05-08] MEDS: FLUOXETINE HCL 20 MG CAP PO SCH (08:41)
[2019-05-08] MEDS: predniSONE 20 MG TAB PO SCH (08:41)
[2019-05-08] MEDS: guaiFENesin 600 MG TABCR PO SCH ×2 (08:41→20:02)
[2019-05-08] MEDS: DOXYCYCLINE HYCLATE 100 MG CAP PO SCH ×2 (08:41→20:05)
[2019-05-08] MEDS: PANTOprazole 40 MG TAB PO SCH ×2 (08:42→20:04)
[2019-05-08] MEDS: DOCUSATE SODIUM/SENNA 50/8.6MG TAB PO SCH (08:42)
[2019-05-08] MEDS: MONTELUKAST SODIUM 10 MG TABLET PO SCH (08:42)
[2019-05-08] MEDS: GABAPENTIN 100 MG CAP PO SCH (08:42)
[2019-05-08] MEDS: FLUTICASONE PROPIONATE NA SPR 16 GM BTL SCH ×2 (08:43→20:01)
[2019-05-08] MEDS: FLUTICASONE/SALMETEROL 250/50 (ADVAIR) 14 PUFF/1 INHALER INH SCH ×2 (08:43→20:01)
[2019-05-08] MEDS: ANUSOL SUPP 1 EA PR SCH ×2 (08:44→20:02)
[2019-05-08] MEDS: INSULIN GLARGINE SOLOSTAR 100 UNITS/ML 3 ML PEN SQ SCH (08:46)
[2019-05-08] MEDS: INSULIN ASPART 100 UNITS/ML 3 ML PEN SC SCH ×4 (08:48→20:44)
[2019-05-08] MEDS: BENZONATATE 100 MG CAPSULE PO PRN (08:51)
[2019-05-08] MEDS: MoRPHine SULFATE CR 15 MG TABCR PO SCH ×2 (08:51→19:43)
[2019-05-08] MEDS ORDERED: FUROSEMIDE 40 MG TAB PO SCH (09:00)
--- NOTE | 2019-05-08 16:43 | Hospitalist Progress Note ---
Date of Service May 08, 2019 Assessment & Plan (1) Severe sepsis: COPD exacerbation secondary to possible Pneumonia, Bronchitis -- lactic acid normalized -- CXR: 1. Cardiomegaly without overt pulmonary edema. 2. Bibasilar opacities suggest probable atelectasis/scarring. Pneumonitis however would be difficult to exclude. --Blood cultures: Pending Sputum culture: Moderate normal dali, pending --CT chest: Small pulmonary nodules, infiltrates -- Weaned off oxygen Transitioned from Solu-Medrol to prednisone 60 mg p.o. daily then taper gradually--> doing better Continue doxycycline complete 7 days Continue nebs Patient needs to follow-up with her usual commodity specialist as scheduled next week Possible rheumatoid arthritis flare Patient currently takes leflunomide, discontinued last Wednesday due to fever and cough Patient also received Actemra but was discontinued last January for respiratory symptoms Reports increasing right shoulder and right knee pain and swelling Right knee ultrasound: IMPRESSION: 6 x 3 cm fluid collection and/or effusion lateral to the right knee. Ortho consulted: Aspiration not recommended at this time, continue to follow-up with student truck driver Fundraising Consultant consulted: Possible RA flare secondary to ongoing p neumonia/respiratory infection, agree with tapering course of steroids, needs to follow-up with student truck driver next week as scheduled --> continue monitoring on Prednisone CAD status post stent -- no cardiac symptoms Hypertension -- continue Metoprolol and Imdur -- hold Amlodipine as BP within goal re-evaluated as outpatient Hyperlipidemia on statin Rx Hypothyroidism, euthyroid based on TSH Hyperglycemia rule out DM -- A1c 6.9 --Diabetic diet, will need close outpatient follow-up DM educator consulted patient to record her Blood glucose levels and will present readings to PCP Hypokalemia -- secondary to diuretic Rx -- resolved Chronic anemia, hemoglobin slightly lower than baseline -- 11--> 10 no signs of overt bleeding monitor -- Fe 17 FOBT positive, from hemorrhoids? started Fe supplement further work up as outpatient by PCP DVT prophylaxis per Lovenox subcu Full code d/c home ff up with PCP this week ff up with Rheum, Pulm as scheduled Subjective ff up for COPD exacerbation seen resting in bed, comfortable, in good spirits states she feels much better overall denies shortness of breath, cough, sputum, fever/chills no abdominal pain, (+) BM yesterday no melena/hematochezia shoulder and knee pain resolved no other symptoms Review of Systems Review of Systems: All systems reviewed & are unremarkable except as noted in HPI & below Physical Exam Physical Exam: General- oriented x 3, not in distress, speaks in sentences with no effort or accessory muscle use Eyes- anicteric Neck- no JVD Lungs- clear BS BL no rales/wheezing Heart- normal rate, regular rhythm; no murmurs Abdomen- normal bowel sounds, nondistended, soft, nontender Extremities- no pretibial edema, no calf tenderness Neuro- alert, oriented x 3; no gross focal neurologic deficits Skin- warm & dry Results & Data Vital Signs (Past 12 Hours) Vital Signs Temp Pulse Resp BP BP Pulse Ox 05/08/19 15:39 36.6 C 89 18 130/77 93 05/08/19 13:16 87 18 95 05/08/19 07:21 56 L 18 91 05/08/19 06:53 36.3 C L 66 18 109/66 95 Laboratory Results Laboratory Results - last 24 hr 05/07/19 05/07/19 05/08/19 19:10 20:01 05:40 Creatinine 0.74 Est Cr Clr Drug Dosing 97.8 Est GFR ( Amer) 101.3 Est GFR (Non-Af Amer) 87.4 POC Glucose 139 H Stool Occult Bld Scrn Positive A 05/08/19 08:22 Creatinine Est Cr Clr Drug Dosing Est GFR ( Amer) Est GFR (Non-Af Amer) POC Glucose 101 H Stool Occult Bld Scrn
--- NOTE | 2019-05-08 17:17 | Pharmacy Report ---
PHA: Glycemic Control AP - Date of Service May 08, 2019 - Assessment & Plan Hospitalist called for outpatient recommendations for patient who is being discharged on a Prednisone taper. Patient is currently on Prednisone 60mg QD, will decrease to 50mg PO QD x3 days starting tomorrow (05/09/19). Pt is not on any injectable or oral diabetes medications as an outpatient. Her last A1C of 6.9% is believed to be inflated 2/2 previous steroid tapers. They are currently trying to order/obtain a BSG meter for the patient. She also has a follow-up with her PCP on Wednesday (2 days). Insulin use has been minimal during admission - currently using about 15-17 units total per day; 5 units basal, 10-12 units prandial. If patient is able to self-inject at home, recommended the use of NPH insulin taken daily in the AM with Prednisone throughout duration of taper. Since insulin needs were low, suggested using 10 units SQ daily for doses >40mg, and 5 units SQ daily for doses < 40mg. Hospitalist was going to discuss options with patient to determine if she was willing to try NPH. Pharmacy will continue to monitor BSGs and manage glycemic control until discharge. Thank you!
--- NOTE | 2019-05-08 17:55 | Discharge Summary ---
Date of Service May 08, 2019 Admission HPI Per Admitting Provider History obtained from patient and records. Medical history significant for CAD status post stent, hypertension, hyperlipidemia, COPD as per records, past tobacco abuse, rheumatoid arthritis, hypothyroidism, chronic anemia (baseline hemoglobin of 11). Recent confinement May 2013 under General Surgery service for perforated gastric ulcer status post surgery. Patient moved to [place] from [place] late 2013. Currently in town for the holidays to visit family. Few days history of malaise symptoms, dry cough later productive of greenish sputum associated with chills, body aches, and fever at home. Possible sick contact at home. Worsening shortness of breath without chest pain. Denies aspiration. At the ER, patient received Cefepime for sepsis. Medical History as above Surgical History : Cholecystectomy, cervical conization, ganglion/neuroma removal right foot, tonsillectomy/adenoidectomy, BTL, ex lap and closure of perforated gastric ulcer, appendectomy, a port placement Family History : Lung cancer, colon cancer, heart disease Personal/Social history : Past tobacco abuse, occasional EtOH intake, disabled Admission Exam Per Admitting Provider GENERAL: Obese, minimal respiratory distress SKIN: Pallor , warm HEENT: Pale palpebral conjunctivae, no ptosis, dry buccal mucosa NECK : Supple, short neck, no tenderness CHEST : Expiratory wheezes, no tenderness HEART : Tachycardic , no obvious murmurs ABDOMEN: Some distention, nontender EXTREMITIES : Minimal LE swelling, no LE tenderness, no other conspicuous deformities noted NEUROLOGIC : Coherent, no facial asymmetry, no other gross focality Principal Diagnosis COPD Exacerbation Discharge Exam General- oriented x 3, not in distress, speaks in sentences with no effort or accessory muscle use Eyes- anicteric Neck- no JVD Lungs- clear BS BL no rales/wheezing Heart- normal rate, regular rhythm; no murmurs Abdomen- normal bowel sounds, nondistended, soft, nontender Extremities- no pretibial edema, no calf tenderness Neuro- alert, oriented x 3; no gross focal neurologic deficits Skin- warm & dry Discharge Data Allergies Allergy/AdvReac Type Severity Reaction Status Date / Time codeine Allergy Intermediate CODEINE=NAUSEA Verified 05/02/19 23:33 VICODIN = HIVES/ITCHING, PERCOCET = VOMITING Iodinated Contrast Media Allergy Intermediate HIVES Verified 05/02/19 23:33 hydroxychloroquine Allergy Unknown Unknown Verified 05/02/19 23:33 metronidazole Allergy Unknown Hives Verified 05/02/19 23:33 hydromorphone AdvReac NAUSEA Verified 05/02/19 23:33 Consultations 05/02/19 23:00 ED Decision to Admit Stat 05/04/19 16:30 Consult Rheumatology Stat 05/05/19 13:11 Consult Orthopedic Surgery Routine 05/05/19 13:18 Consult Pulmonology Routine 05/08/19 16:43 Burn CD for patient Routine Ordered Studies 05/04/19 16:28 CT chest wo con Routine CT DOSE: 662.99 mGycm HISTORY: Dyspnea possible pneumonia, r/o effusion TECHNIQUE: Multiaxial CT images of the chest were performed without contrast. A dose lowering technique was utilized adhering to the principles of ALARA. COMPARISON: None. FINDINGS: Several scattered groundglass nodules throughout both hemithoraces. The left pulmonary apex demonstrates a small groundglass nodule image 15. Several 2 mm groundglass nodules are identified within the lingula. There are small groundglass nodules anterior to the right major fissure image 27 right lung base as well as anterior aspect left upper lobe image 27. There are findings of bibasilar dependent atelectasis. There is no significant pleural effusion. Mediastinal regions show evidence for a central catheter. There are several small mediastinal nodes measuring 1 cm or less. IMPRESSION: 1. Small scattered groundglass densities throughout both hemithoraces as discussed. 2. All measure less than 1.5 cm in maximum dimension. 3. Diagnostic considerations must include multifocal punctate infiltrates, versus a variety of etiologies considered less likely. 4. A 3 month follow-up is suggested. 5. No evidence for significant pleural effusion. ACT 112: Negative or not required by law. The above report was generated using voice recognition software. It may contain grammatical, syntax or spelling errors. Electronically signed by: Ankit Nicholas M.D. 05/04/2019 6:30 PM US extremity nonvascular Routine CLINICAL HISTORY: r/o right knee effusion COMPARISON STUDY: No previous studies for comparison. FINDINGS: Slightly complex fluid pocket lateral to the right knee measuring 6 x 3 cm. This appear to represent an asymmetric joint effusion. No additional abnormalities appreciated ultrasonically. IMPRESSION: 6 x 3 cm fluid collection and/or effusion lateral to the right knee. ACT 112: Negative or not required by law. The above report was generated using voice recognition software. It may contain grammatical, syntax or spelling errors. Electronically signed by: Ankit Nicholas M.D. 05/04/2019 9:05 PM Hospital Course (1) Severe sepsis: COPD exacerbation secondary to possible Pneumonia, Bronchitis --Presented with sepsis syndrome and lactic acidosis Clinically improved -- CXR: 1. Cardiomegaly without overt pulmonary edema. 2. Bibasilar opacities suggest probable atelectasis/scarring. Pneumonitis however would be difficult to exclude. --Blood cultures: Pending Sputum culture: Moderate normal dali, pending --CT chest: 1. Small scattered groundglass densities throughout both hemithoraces as discussed. 2. All measure less than 1.5 cm in maximum dimension. 3. Diagnostic considerations must include multifocal punctate infiltrates, versus a variety of etiologies considered less likely. 4. A 3 month follow-up is suggested. 5. No evidence for significant pleural effusion. Evaluated by pulmonary service Placed on Solu-Medrol IV, doxycycline, nebulizer treatments Patient gradually improved and was able to be weaned off of oxygen Transitioned from Solu-Medrol to prednisone 60 mg p.o. daily then taper gradually Continue doxycycline x1 more day to complete 7 days Continue nebs as needed Patient needs to follow-up with her usual safety specialist as scheduled next week repeat CT chest as outpatient per Engineer And Geologist to evaluate pulmonary nodules Possible rheumatoid arthritis flare Patient currently takes leflunomide, discontinued last Wednesday due to fever and cough Patient also received Actemra but was discontinued last January for respiratory symptoms Reports increasing right shoulder and right knee pain and swelling Right knee ultrasound: IMPRESSION: 6 x 3 cm fluid collection and/or effusion lateral to the right knee. Ortho consulted: Aspiration not recommended at this time, continue to follow-up with edge sawyer Registered Nurse Maternal Child consulted: Possible RA flare secondary to ongoing pneumonia/respiratory infection, agree with tapering course of steroids, needs to follow-up with edge sawyer next week as scheduled --> continue monitoring while on Prednisone taper Hyperglycemia, possible DM 2 patient was also on Prednisone taper recently, so could be related to prednisone use A1c 6.9 patient given Insulin Lantus and Novolog sliding scale as inpatient community educator consulted and had a discussion with patient further work up and monitoring as outpatient patient instructed to use Insulin while on Prednisone taper: WHILE ON PREDNISONE, YOU HAVE TO TAKE INSULIN NPH DAILY. WHILE ON PREDNISONE 50MG AND 40MG, ADMINISTER 10 UNITS OF NPH INSULIN ONCE IN THE MORNING. WHILE ON PREDNISONE 30 MG, 20MG, AND 10MG, ADMINISTER 5 UNITS OF NPH INSULIN ONCE IN THE MORNING. STOP INSULIN ONCE YOU ARE DONE WITH PREDNISONE, OR UNLESS ADVISED OTHERWISE BY YOUR PRIMARY CARE PHYSICIAN. TAKE YOUR BLOOD SUGAR READING FIRST PRIOR TO INSULIN ADMINISTRATION. DO NOT ADMINISTER INSULIN IF YOUR BLOOD GLUCOSE IS EQUAL TO OR BELOW 120. CALL YOUR PRIMARY CARE PHYSICIAN IMMEDIATELY IF YOUR BLOOD SUGAR IS ABOVE 200. RECORD YOUR BLOOD GLUCOSE LEVELS AND PRESENT THE READINGS TO YOUR PRIMARY CARE PHYSICIAN. CAD status post stent -- no cardiac symptoms Hypertension -- continue Metoprolol and Imdur -- re-evaluate as outpatient Hyperlipidemia on statin Rx Hypothyroidism, euthyroid based on TSH Hypokalemia -- secondary to diuretic Rx -- resolved Chronic anemia, hemoglobin slightly lower than baseline -- 11--> 10 no signs of overt bleeding -- Fe 17 FOBT positive, from hemorrhoids? started Fe supplement further work up as outpatient by PCP d/c home ff up with PCP this week ff up with Rheum, Pulm as scheduled Total Time Total Time Spent Total Time Spent (In Minutes): 60 minutes Discharge Plan Discharge Items Patient Disposition: Home - Self-Care Reason For Visit: SEPSIS Discharge Diagnosis: COPD EXACERBATION Activity: As commented below Activity Comment: RESUME ACTIVITY GRADUALLY TOLERATED Lifting: Wait until after follow-up appointment Exercise/Sports: Wait until after follow-up appointment Driving/Machine Use: NO DRIVING UNTIL ALLOWED BY PRIMARY CARE PHYSICIAN Non-emergency contact: Primary Care Provider Call non-emergency contact if: you have any medication questions, your symptoms worsen, your pain is not controlled, your pain is worsening, your pain is unusual for you, your pain is concerning for you and you have a fever Follow-up/Referrals: PCP,NO [Primary Care Provider] - Diet: Carb Consistent or DM2 and Heart Healthy Addtl Attending Provider Instructions: PLEASE REVIEW YOUR NEW MEDICATION LIST AND FOLLOW INSTRUCTIONS CAREFULLY. FOR PREDNISONE TAPER: TAKE 50 MG PO DAILY X 3 DAYS, THEN TAKE 40 MG PO DAILY X 3 DAYS, THEN TAKE 30 MG PO DAILY X 3 DAYS, THEN TAKE 20 MG PO DAILY X 3 DAYS, THEN TAKE 10 MG PO DAILY X 3 DAYS, THEN STOP WHILE ON PREDNISONE, YOU HAVE TO USE INSULIN NPH DAILY. WHILE ON PREDNISONE 50MG AND 40MG (FOR TOTAL OF 6 DAYS), ADMINISTER 10 UNITS OF NPH INSULIN ONCE IN THE MORNING. WHILE ON PREDNISONE 30 MG, 20MG, AND 10MG (FOR TOTAL OF 9 DAYS), ADMINISTER 5 UNITS OF NPH INSULIN ONCE IN THE MORNING. STOP INSULIN ONCE YOU ARE DONE WITH PREDNISONE TAPER, OR UNLESS ADVISED OTHERWISE BY YOUR PRIMARY CARE PHYSICIAN. TAKE YOUR BLOOD SUGAR READING FIRST PRIOR TO INSULIN ADMINISTRATION. DO NOT ADMINISTER INSULIN IF YOUR BLOOD SUGAR IS EQUAL TO OR BELOW 120. CALL YOUR PRIMARY CARE PHYSICIAN IMMEDIATELY IF YOUR BLOOD SUGAR IS ABOVE 200. RECORD YOUR BLOOD GLUCOSE LEVELS DAILY AND PRESENT THE READINGS TO YOUR PRIMARY CARE PHYSICIAN ON FOLLOW UP. CALL PRIMARY CARE PHYSICIAN OR RETURN TO THE ER IMMEDIATELY IF WITH RECURRENCE OR WORSENING OF SYMPTOMS, BLOOD IN YOUR STOOLS. FOLLOW UP WITH YOUR PRIMARY CARE PHYSICIAN AND ICE SELLER THIS WEEK. Pending Studies at Discharge: Yes Studies:: FURTHER ANEMIA WORK UP C/O PRIMARY CARE PHYSICIAN. REPEAT CT SCAN OF THE CHEST C/O ICE SELLER. Stand-Alone Forms: [facility], Smoking Cessation Medications and DC Order Prescriptions: New doxycycline hyclate 100 mg Capsule 100 mg PO BID 1 Days Qty: 2 RF: 0 ipratropium bromide 0.02 % Solution 0.5 mg inhalation Q4H PRN (Reason: shortness of breath or wheezing) 30 Days Qty: 75 RF: 2 levalbuterol HCl 1.25 mg/0.5 mL Solution For Nebulization 1.25 mg inhalation Q4H PRN (Reason: shortness of breath or wheezing) 30 Days Qty: 30 RF: 2 sennosides-docusate sodium [Senokot-S] 8.6-50 mg Tablet 1 tab PO QAM 30 Days Qty: 30 RF: 0 fluticasone propion-salmeterol [Advair Diskus] 250-50 mcg/dose Blister With Device 1 ea inhalation BID 30 Days Qty: 60 RF: 2 benzonatate [Tessalon Perles] 100 mg Capsule 100 mg PO TID PRN (Reason: cough) 10 Days Qty: 30 RF: 0 guaifenesin [Mucinex] 600 mg Tablet Extended Release 12hr 1,200 mg PO Q12 7 Days Qty: 28 RF: 0 hydrocortisone [Anusol-HC] 2.5 % cream with perineal applicator 1 appln MD BID PRN (Reason: hemorrhoids) Qty: 30 RF: 1 insulin NPH isoph U-100 human 100 unit/mL (3 mL) insulin pen 5 units SQ QAM 15 Days Qty: 3 RF: 2 prednisone 10 mg tablet 10 mg PO UD Qty: 75 RF: 0 ferrous sulfate 325 mg (65 mg iron) tablet 325 mg PO BID Qty: 30 RF: 2 Continued cyclobenzaprine 10 mg tablet 10 mg PO TID PRN (Reason: Muscle Spasm) RF: 0 atorvastatin 10 mg Tablet 10 mg PO QPM RF: 0 metoprolol succinate 50 mg Tablet Extended Release 24 Hr 50 mg PO DAILY RF: 0 promethazine 12.5 mg tablet 12.5 mg PO TID PRN (Reason: Nausea) RF: 0 isosorbide mononitrate 30 mg Tablet Extended Release 24 Hr 30 mg PO QAM RF: 0 clobetasol 0.05 % Cream 1 applic TOPICAL BID RF: 0 melatonin 3 mg Tablet 10 mg PO HS PRN (Reason: Sleep) RF: 0 aspirin 81 mg Tablet,Delayed Release (Dr/Ec) 81 mg PO HS RF: 0 triamcinolone acetonide 0.1 % Cream 1 applic TOPICAL BID RF: 0 spironolactone 25 mg Tablet 25 mg PO DAILY RF: 0 levothyroxine 100 mcg Tablet 100 mcg PO DAILY RF: 0 pantoprazole 40 mg Tablet,Delayed Release (Dr/Ec) 40 mg PO BID RF: 0 nitroglycerin [Nitrostat] 0.4 mg Tablet, Sublingual 0.4 mg sublingual DIRECTED PRN (Reason: Chest Pain) RF: 0 gabapentin 300 mg capsule 300 mg PO QPM RF: 0 montelukast 10 mg Tablet 10 mg PO DAILY RF: 0 mupirocin 2 % Ointment 1 applic TOPICAL QAM RF: 0 furosemide 20 mg Tablet 40 mg PO DAILY RF: 0 gabapentin 100 mg capsule 100 mg PO DAILY RF: 0 polyethylene glycol 3350 17 gram/dose Powder 17 g PO DAILY PRN (Reason: Constipation) RF: 0 albuterol sulfate [ProAir HFA] 90 mcg/actuation Hfa Aerosol Inhaler 1 - 2 puff INHALATION Q4H PRN (Reason: Shortness Of Breath Or Wheezing) RF: 0 ketoconazole 2 % Cream 1 applic TOPICAL HS RF: 0 fluoxetine 20 mg capsule 40 mg PO DAILY RF: 0 fluticasone propionate [Flonase Allergy Relief] 50 mcg/actuation [place],Suspension 1 spray INTRANASAL BID RF: 0 Ruth-3 Fish Oil 300-1,000 mg Capsule 1 cap PO DAILY RF: 0 fluticasone propion-salmeterol 55-14 mcg/actuation Aerosol Powdr Breath Activated 1 puff INHALATION BID RF: 0 Discharge Orders: Discharge Order (Routine); Ordered 05/08/19 Ordered By: Celio Dwyer/Other Patient Handouts: Diabetes Healthy Meals, Diabetes Meal Planning, A1C Admission Data Admit Date/Time: 05/02/19 23:46 Attending Provider: Celio Casas Admit Provider: Derrick Olivera Primary Care Provider: PCP,NO Other Providers: Derrick Olivera ; Tisha Vo I. ; Shaun Pacheco [place]
[2019-05-08] MEDS: ATORVASTATIN 10 MG TAB PO SCH (20:03)
[2019-05-08] MEDS: GABAPENTIN 300 MG CAP PO SCH (20:12)
[2019-05-08] MEDS ORDERED: BENZONATATE 100 MG CAPSULE PO SCH (20:21)
[2019-05-08] MEDS ORDERED: DOCUSATE SODIUM/SENNA 50/8.6MG TAB PO SCH (20:30)
[2019-05-08] MEDS ORDERED: predniSONE 50 MG TAB PO SCH (20:30)
[2019-05-08] MEDS ORDERED: INSULIN HUMAN NPH SC SCH (20:30)
[2019-05-08] MEDS ORDERED: FERROUS SULFATE 325 MG TAB PO SCH (20:30)
[2019-05-08] MEDS ORDERED: DOXYCYCLINE HYCLATE 100 MG CAP PO SCH (20:30)
[2019-05-08] MEDS ORDERED: guaiFENesin 600 MG TABCR PO SCH (20:30)
[2019-05-09] MEDS ORDERED: FERROUS SULFATE 325 MG TAB PO SCH (08:00)
[2019-05-09] MEDS ORDERED: predniSONE 50 MG TAB PO SCH (09:00)
[2019-05-09] MEDS ORDERED: INSULIN HUMAN NPH SC SCH (09:00)
== END 2019-05-08 21:10 | disposition home or self-care (01) | DRG 872 ==
LOC: ED 20:03 → 2W 23:46 → 3W 05-07 21:54